=== PATIENT | female | born 1940 | race Caucasian/White ===

== ENCOUNTER → 2017-03-15 | Outpatient (CLI) | payer OTHER ==
[~2017-03-15] MED LIST: ASPI1TAB83 PO; CALC500C70 PO; CHOL1000 PO; CHOL4POW5 PO; FMR25 PO; MULTTAB58 PO; OMEG10002 PO; PRED1SUS3 OPB; SIMV40TA2 PO
[2017-03-15 13:34] VITALS: BP 119/78; PULSE 82; TEMP 36.7; O2SAT 94
--- NOTE | 2017-03-15 15:17 | Radiation Oncology Follow-Up ---
Radiation Oncology Follow-Up Date of Visit Mar 15, 2017. 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 Marcus is been followed with serial screening mammograms. 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 She had completed this and is now on no additional therapy. On 04/14/2014 a bilateral screening mammogram was performed. This showed 2 areas of concern in the right breast at the 9:00 central breast and 9 to 10 o'clock position lateral breast. A core needle biopsy was recommended. This procedure was performed on 04/22/2014. The right breast calcifications at the 9:00 central breast stereotactic biopsy revealed in site to ductal carcinoma, intermediate grade with necrosis and associated calcifications. The biopsy from the right breast calcifications at the 9 to 10:00 lateral breast stereotactic core biopsy revealed in situ ductal carcinoma intermediate grade with necrosis and associated calcifications. Accession #: [id number]. Estrogen receptors were strongly positive (100%) and progesterone receptors were moderately positive (50%). The patient was seen by Dr. Root to discuss treatment options. The patient opted to proceed with a partial mastectomy. The patient agreed and on 06/11/2014 she underwent a breast needle localization biopsy and sentinel lymph node biopsy. The breast tissue revealed a residual small focus of ductal carcinoma in situ, intermediate grade with necrosis and calcifications. There was foci of lobular neoplasia. All inked margins of resection were negative for ductal carcinoma in situ. The closest Alli was the anterior margin at 0.1 cm from the tumor. The estimated size was 0.9 cm with DCIS involving 3 of 11 blocks examined. The architectural pattern was comedo, cribriform with nuclear grade 2 and evidence of expansive comedo necrosis. 2 sentinel lymph nodes were identified and both were negative for metastatic carcinoma. The final stage was therefore pTis pN0(i-) ER positive WI positive. Accession #: [id number]. The patient developed some erythema surrounding the incision and was placed on a course of Keflex which she has recently completed. She states that the erythema has improved. She underwent a CT simulation and was found to be a candidate for accelerated partial breast treatment. Interim History She's been doing well over this past year. She denies any changes to her breast. She's noted no masses or tenderness no change of the axilla. She is up -to-date on mammography. She's noticed no swelling in her arm. She had previously seen Dr. Rome and was prescribed Femara. She was concerned about taking medication and stopped taking it on her own. She does not plan to restart. She also did not plan to follow up with medical oncology. She is scheduled for her next mammogram in May. Allergies Coded Allergies: Fabric Softeners (Unverified Allergy, Mild, RASH, 07/09/14) Home Medications Scheduled Aspirin (Aspirin), 81 MG PO DAILY Calcium/Vitamin D (Os-Alex 500 Plus D), 1 TAB PO BID Cholecalciferol (Vitamin D3), 1 TAB PO DAILY Cholestyramine Light (Prevalite), 4 GM PO DAILY Multiple Vitamin (Multivitamin), 1 TAB PO DAILY [place]-3 Fatty Acids (Fish Oil), 1,000 MG PO DAILY Prednisolone Acetate (Ophth) (Pred Forte 1% Oph), 1 DROP OPB DAILY Simvastatin (Zocor), 40 MG PO QPM Review of Systems Gastrointestinal: Symptoms: WNL Oral: Symptoms: No Problems Respiratory: Symptoms: WNL Urinary: Symptoms: WNL Skin: Symptoms: No Problems Other Skin Symptoms: had a skin cancer removed on Monday from arm Breast: Right Upper Arm Measurement: 33.5 Right Mid Arm Measurement: 26.0 Right Wrist Measurement: 17.0 Left Upper Arm Measurement: 33.0 Left Mid Arm Measurement: 24.8 Left Wrist Measurement: 17.0 Arm Dominence: Right Physical Exam Vital Signs Date Time Temp Pulse Resp B/P (MAP) Pulse Ox O2 Delivery O2 Flow Rate FiO2 03/15/17 13:34 36.7 82 20 119/78 94 Fatigue: None General Appearance: no apparent distress Eyes: normal inspection, EOMI ENT: normal ENT inspection, hearing grossly normal Neck: no adenopathy, thyroid normal Respiratory/Chest: lungs clear, no respiratory distress, no accessory muscle use Breast: Breast examination reveals well-healed incisions of the right breast. There are no masses or tenderness and no axillary adenopathy. She has fibrocystic changes in the area of the incision of the lateral breast. There are no distinct masses. There is no telangiectasia. She has no skin retractions or nipple changes. Using the Berlin score cosmesis she has a good outcome. The left pressure no masses or tenderness no axillary adenopathy. Cardiovascular: regular rate, rhythm, no gallop, no murmur Abdomen: non tender, soft, no organomegaly Extremities: no pedal edema Neurologic/Psychiatric: no motor/sensory deficits, alert, normal mood/affect Skin: warm/dry Pain Management Patient Reports Pain: No Pain Location: None Patient Preferred Pain Scale: 0 - 10 Initial Pain Intensity: 0.0 Pain Management Plan She has no pain therefore requires no pain management. Laboratory Laboratory Results: not applicable Pathology Pathology Results: not applicable Imaging Imaging Studies: were reviewed, and pertinent findings noted below Imaging Comments Date/Time of Imaging Study Study Completed: 11/21/2016 9:06 AM [facility] P[facility] Image Narrative Comparison is made to images from 05/16/2016 (bilateral) and images from 2015 (right) and images from 04/17/2015 (bilateral) and images from 10/27/2014 (right) and images from 2014 (right) and images from 04/14/2014 (bilateral) and images from 04/08/2013 (bilateral) and images from (bilateral) and images from 03/11/2011 (bilateral) and images from 03/10/2010 (bilateral). Right Breast Findings: The breast is heterogeneously dense (51% - 75% fibroglandular). This may lower the sensitivity of mammography. Post therapeutic changes are again noted. No new significant calcifications, masses or other abnormalities. Authenticated By Authenticating Date Authenticating Time Reading Providers(s) JETT SALCEDO MD 11-21-2016 09:23 JETT SALCEDO MD IMPRESSION: RIGHT BREAST: Benign, no evidence of malignancy. Normal interval follow-up is recommended in 6 months. Bilateral annual mammogram would be due at that time. The above findings and recommendations were discussed with and understood by the patient. Note: Approximately 10% of breast cancers are not detected on mammography. A negative mammographic report should not delay biopsy if a clinically suggestive mass is present. This mammogram has been analyzed with the computer aided detection system. Tomosynthesis was done. This notice contains the results of your recent mammogram, including information about breast density. If your mammogram shows that your breast tissue is dense, you should know that dense breast tissue is a common finding and is not abnormal. Statistics show many women could have dense or highly dense breasts. Dense breast tissue can make it harder to find cancer on a mammogram and may be associated with an increased risk of cancer. This information about the result of your mammogram is given to you to raise your awareness and to inform your conversations with your physician. Together, you can decide which screening options are right for you, based on your mammogram results, individual risk factors or physical examination. A report of your results was sent to your physician. Your mammographic breast density on today's study is described above. There are four categories of breast density on mammography. Fatty breasts and those with scattered fibroglandular tissue are not considered dense. Heterogeneously dense or extremely dense tissue is considered "dense". Please understand that assessment of breast density may vary from year to year. OVERALL ASSESSMENT - CATEGORY 2 - BENIGN END OF IMPRESSION Assessment & Plan Plan: Continue regular follow-up with her primary care provider. She'll be due for bilateral mammography in May. She has stopped the Femara on her own. She does not plan to resume the medication. She previously had concerns about changes that had occurred on her bone density study. We asked her to return to our office in 1 year. She may call if she has any questions or concerns in the interim. Total Time In Follow-Up I spent 20 minutes speaking to the patient and performing examination. I spent 15 minutes reviewing information and completeness note. Copy To Serafin Amaya D.O.
== END | disposition home or self-care (01) ==
LOC: C.ONC 13:22
PROVIDERS: ATTEND Physician Assistant Medical
DX: Z08 Encounter for follow-up examination after completed treatment for malignant neoplasm (principal); Z92.3 Personal history of irradiation; Z85.3 Personal history of malignant neoplasm of breast

== ENCOUNTER 2023-02-08 16:20 | Inpatient (IN) ==
--- NOTE | 2023-02-08 16:35 | Emergency Department Note ---
Impression & Plan Atrial fibrillation with RVR ED Provider Note CHIEF COMPLAINT: Atrial fibrillation, shortness of breath HISTORY OF PRESENT ILLNESS: This 83-year-old female patient past medical history of atrial fibrillation, congestive heart failure, dyslipidemia and breast cancer presents to the emergency department with complaints of persistent shortness of breath and palpitations. Patient states she believes she is in atrial fibrillation. She has been at home for the last couple of days hoping this would take care of itself. Patient has had no fevers COVID chills COVID chest pain. She denies any vomiting or fevers. She is anticoagulated with Eliquis and does take metoprolol daily. REVIEW OF SYSTEMS: A review of systems was performed with positives and pertinent negatives listed in the history of present illness. 10 systems were reviewed and are otherwise negative. ALLERGIES: see below MEDICATIONS: see below PMH: see below SOCIAL HISTORY: see below DDx: Atrial fibrillation, acute coronary syndrome, electrolyte abnormality, dehydration, infectious etiology, PE among others. PHYSICAL EXAM: Vital signs reviewed. General: Well-appearing ,83-year-old female in no significant distress. HEENT: No scleral icterus, PERRLA, neck supple. Moist mucous membranes Cardiovascular: Irregular and tachycardic, no extra sounds. Pulmonary: Clear to auscultation bilaterally, normal work of breathing. Abdomen: Soft, nontender, nondistended, positive bowel sounds. Musculoskeletal: Atraumatic, no peripheral edema. Neurologic: Patient awake alert and oriented x 3, speech is clear Skin: Warm, dry, no rash EXTERNAL medical records reviewed: Discharge summary 12/31/2022, previous EKG dated December 31, 2022 and prescription fill history EMERGENCY DEPARTMENT COURSE/MDM: This patient was evaluated and appeared to be in no significant distress. IV access was obtained and laboratory work was drawn. The patient was placed on the ekg monitor and noted to be in a rapid atrial fibrillation. Patient was medicated with 5 mg of IV metoprolol. She did not have any significant change in heart rate. Patient was then given 10 mg of IV Cardizem x2. Patient did require a Cardizem drip be initiated. Electrolytes seem to be within normal limits. Troponin is negative. Chest x-ray reveals mild pulmonary vascular congestion. The patient was informed of the findings and plan for admission. Hospitalist service was consulted for further management. MONITORING: An order for cardiac monitoring was placed and the patient is noted to be in a atrial fib at 132 beats per minute. RADIOLOGY: Chest x-ray to my interpretation reveals cardiomegaly with pulmonary vascular congestion, otherwise defer to radiology's over read. EKG: To my interpretation reveals atrial fibrillation with rapid ventricular response at 145 bpm. QTc at 484. No PVC, no PAC. poor R wave progression. When compared to previous dated December 31, 2022, atrial fibrillation has replaced sinus rhythm. DISPOSITION: Admission I have personally spent 40 minutes of critical care time in the direct management of this patient. This was a life/limb threatening event. This 40 minutes is in excess of all separately billable procedures. 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 Beliefs That Will Affect Care: None Current Living Situation: Spouse Current Living Situation Comment: Lives at home with Other Information That Helps Us Care for You: No Feels Safe at Home: Yes Safety Concerns: Feels Safe At This Time Assistive Devices: None Allergies Allergies Allergy/AdvReac Type Severity Reaction Status Date / Time Fabric Softeners Allergy Mild RASH Uncoded 02/08/23 18:23 Home Meds Home Medications Medication Instructions Recorded Confirmed calcium carbonate 500 mg calcium 500 mg PO BID 12/26/22 02/08/23 (1,250 mg) tablet multivitamin 1 tab PO DAILY 12/26/22 02/08/23 prednisolone acetate 1 % eye 1 drp OPB HS 12/26/22 02/08/23 drops,suspension (Pred Forte) metoprolol succinate 25 mg 37.5 mg PO QAM 02/08/23 02/08/23 tablet,extended release 24 hr rosuvastatin 10 mg tablet 10 mg PO HS 02/08/23 02/08/23 Previous Rx's Medication Instructions Recorded apixaban 5 mg tablet (Eliquis) 5 mg PO BID #60 tabs 12/27/22 Results & Data (ED) Vital Signs Vital Signs - 24 hr 02/08/23 16:24 Temperature 36.5 C Temperature Source Temporal Artery Scan Pulse Rate 136 H Respiratory Rate 19 Respiratory Effort / Characteristics Non-Labored Spontaneous Respiratory Depth Normal Blood Pressure 127/93 Blood Pressure Mean 104 Pulse Oximetry 91 Oxygen Delivery Method Room Air Sepsis Recent Fever Within 48 Hours No Sepsis New/Unexplained Change in Mental Status N/A Sepsis Action Taken by Nursing No Action Required Laboratory Data 02/09/23 05:22 02/12/23 05:09 Lab Results 02/08/23 Range/Units 18:16 WBC 8.55 (4.8-10.8) K/ul RBC 5.09 (4.20-5.40) M/uL Hgb 15.4 (12.0-16.0) g/dl Hct 47.2 H (37.0-47.0) % MCV 92.7 (80.0-100.0) fL MCH 30.3 (25.0-34.0) pg MCHC 32.6 (32.0-36.0) g/dL RDW Std Deviation 48.8 H (36.4-46.3) fL RDW Coeff of Rere 14.2 (11.5-14.5) % Plt Count 131 (130-400) K/uL MPV 13.0 H (9.4-12.4) fL Immature Gran % (Auto) 0.4 % Neut % (Auto) 68.8 % Lymph % (Auto) 18.8 % [place] % (Auto) 10.1 % Eos % (Auto) 1.3 % Baso % (Auto) 0.6 % Neut # (Auto) 5.89 (1.40-6.50) K/uL Lymph # (Auto) 1.61 (1.20-3.40) K/uL [place] # (Auto) 0.86 H (0.11-0.59) K/uL Eos # (Auto) 0.11 (0.00-0.50) K/uL Baso # (Auto) 0.05 (0.00-0.20) K/uL Immature Gran # (Auto) 0.03 (0.01-0.20) K/uL Sodium 140 (136-145) mmol/L Potassium 4.5 (3.5-5.1) mmol/L Chloride 107 (98-107) mmol/L Carbon Dioxide 27 (21-32) mmol/L Anion Gap 6 (3-11) BUN 16 (6-23) mg/dl Creatinine 1.12 (0.6-1.2) mg/dl Est Cr Clr Drug Dosing 38.5 ml/min Est GFR ( Amer) 52.2 ml/min Est GFR (Non-Af Amer) 45.1 ml/min BUN/Creatinine Ratio 14.3 (10-20) Glucose 99 (70-99(Fasting)) mg/dl Calcium 9.0 (8.6-10.3) mg/dl Magnesium 2.1 (1.7-2.4) mg/dl Total Bilirubin 1.4 H (0.2-1.0) mg/dl AST 35 (13-39) U/L ALT 52 (7-52) U/L Alkaline Phosphatase 49 (34-104) U/L Troponin I High Sens 17.5 H (0-14) pg/ml Total Protein 6.3 (6.0-8.3) gm/dl Albumin 3.9 (3.4-5.0) gm/dl Globulin 2.4 L (2.5-4.0) gm/dl Albumin/Globulin Ratio 1.6 (0.9-2) Administered Medications Amiodarone HCl (Amiodarone 200 Mg Tab) 400 mg PO BIDM [facility] Stop: 03/14/23 16:59 Last Admin: 02/12/23 16:04 Dose: 400 mg Documented By: KATIE Apixaban (Apixaban 5 Mg Tablet) 5 mg PO BID [facility] Stop: 03/10/23 20:59 Last Admin: 02/12/23 20:13 Dose: 5 mg Documented By: Admin: 02/12/23 08:09 Dose: 5 mg Documented By: Admin: 02/11/23 20:16 Dose: 5 mg Documented By: Admin: 02/11/23 09:02 Dose: 5 mg Documented By: Admin: 02/10/23 21:21 Dose: 5 mg Documented By: Admin: 02/10/23 09:05 Dose: 5 mg Documented By: Admin: 02/09/23 20:00 Dose: 5 mg Documented By: Admin: 02/09/23 08:17 Dose: 5 mg Documented By: Admin: 02/08/23 22:18 Dose: 5 mg Documented By: SHEBA Calcium Carbonate (Calcium Carbonate 1250mg Tab) 1,250 mg PO BID [facility] Stop: 03/10/23 20:59 Last Admin: 02/12/23 20:13 Dose: 1,250 mg Documented By: Admin: 02/12/23 08:09 Dose: 1,250 mg Documented By: Admin: 02/11/23 20:17 Dose: 1,250 mg Documented By: Admin: 02/11/23 09:01 Dose: 1,250 mg Documented By: Admin: 02/10/23 21:21 Dose: 1,250 mg Documented By: Admin: 02/10/23 09:05 Dose: 1,250 mg Documented By: Admin: 02/09/23 20:00 Dose: 1,250 mg Documented By: Admin: 02/09/23 08:17 Dose: 1,250 mg Documented By: Admin: 02/08/23 22:17 Dose: 1,250 mg Documented By: SHEBA Metoprolol Tartrate (Metoprolol Tartrate 25 Mg Tab) 25 mg PO BID ABRA[facility]AM Stop: 03/10/23 20:59 Last Admin: 02/12/23 08:09 Dose: 25 mg Documented By: Admin: 02/11/23 20:16 Dose: 25 mg Documented By: Admin: 02/11/23 09:01 Dose: 25 mg Documented By: Admin: 02/10/23 21:20 Dose: 25 mg Documented By: Admin: 02/10/23 09:05 Dose: 25 mg Documented By: Admin: 02/09/23 20:00 Dose: 25 mg Documented By: Admin: 02/09/23 08:17 Dose: 25 mg Documented By: Admin: 02/08/23 22:18 Dose: 25 mg Documented By: SHEBA Multivitamins (Multivitamin Tab) 1 tab PO DAILY AB[facility] Stop: 03/11/23 08:59 Last Admin: 02/12/23 08:09 Dose: 1 tab Documented By: Admin: 02/11/23 09:01 Dose: 1 tab Documented By: Admin: 02/10/23 09:05 Dose: 1 tab Documented By: Admin: 02/09/23 08:18 Dose: 1 tab Documented By: MAHOGANY Prednisolone Acetate (Prednisolone Acetate 1% Op Susp 5 Ml Btl) 1 drops OP HS ABRAHAM Stop: 03/11/23 20:59 Last Admin: 02/12/23 20:13 Dose: 1 drops Documented By: Admin: 02/11/23 20:18 Dose: 1 drops Documented By: Admin: 02/10/23 21:19 Dose: 1 drops Documented By: Admin: 02/09/23 20:01 Dose: 1 drops Documented By: SHEBA Rosuvastatin Calcium (Rosuvastatin Calcium 10 Mg Tab) 10 mg PO HS ABRAHAM Stop: 03/10/23 20:59 Last Admin: 02/12/23 20:13 Dose: 10 mg Documented By: Admin: 02/11/23 20:16 Dose: 10 mg Documented By: Admin: 02/10/23 21:20 Dose: 10 mg Documented By: Admin: 02/09/23 20:00 Dose: 10 mg Documented By: Admin: 02/08/23 22:18 Dose: 10 mg Documented By: DM Discontinued Medications Amiodarone HCl (Amiodarone 200 Mg Tab) 400 mg PO TIDM ABRAHAM Stop: 03/12/23 11:59 Last Admin: 02/12/23 08:09 Dose: 400 mg Documented By: Admin: 02/11/23 17:30 Dose: 400 mg Documented By: Admin: 02/11/23 12:22 Dose: 400 mg Documented By: Admin: 02/11/23 09:01 Dose: 400 mg Documented By: Admin: 02/10/23 16:16 Dose: 400 mg Documented By: Admin: 02/10/23 11:26 Dose: 400 mg Documented By: YESICA Diltiazem HCl (Diltiazem Hcl 5 Mg/Ml 5 Ml Vial) 10 mg IV NOW STA Stop: 02/08/23 17:14 Last Admin: 02/08/23 17:36 Dose: 10 mg Documented By: JOSH Co-signed By: PEARL Diltiazem HCl (Diltiazem Hcl 5 Mg/Ml 5 Ml Vial) 10 mg IV NOW STA Stop: 02/08/23 18:09 Last Admin: 02/08/23 18:27 Dose: 10 mg Documented By: PEARL Co-signed By: HÉCTOR Diltiazem HCl (Diltiazem Hcl 5 Mg/Ml 5 Ml Vial) 10 mg IV NOW STA Stop: 02/08/23 19:34 Last Admin: 02/08/23 19:51 Dose: 10 mg Documented By: DoreenGV Co-signed By: REBECCA Furosemide (Furosemide 40 Mg/4 Ml Vial) 40 mg IV ONE ONE Stop: 02/09/23 11:27 Last Admin: 02/09/23 12:19 Dose: 40 mg Documented By: MAHOGANY Furosemide (Furosemide 40 Mg/4 Ml Vial) 40 mg IV ONE ONE Stop: 02/10/23 15:52 Last Admin: 02/10/23 16:14 Dose: 40 mg Documented By: YESICA Furosemide (Furosemide Inj 20 Mg/2 Ml Vial) 20 mg IV ONE ONE Stop: 02/12/23 10:48 Last Admin: 02/12/23 11:16 Dose: 20 mg Documented By: KATIE Diltiazem HCl 125 mg/ Dextrose 125 mls @ 0 mls/hr IV .Q0M ABRAHAM; Protocol Stop: 03/10/23 19:44 Last Titration: 02/09/23 09:57 Dose: Infused Documented By: MAHOGANY Co-signed By: VIRA Titration: 02/09/23 01:01 Dose: 0 mg/hr, 0 mls/hr Documented By: SHEBA Co-signed By: ARR(2) Titration: 02/08/23 20:50 Dose: 10 mg/hr, 10 mls/hr Documented By: SHEBA Co-signed By: ARR(2) Admin: 02/08/23 19:50 Dose: 5 mg/hr, 5 mls/hr Documented By: QGV Co-signed By: REBECCA Digoxin 250 mcg/ Syringe 10 mls @ 2 mls/min IV NOW STA Stop: 02/09/23 01:06 Last Admin: 02/09/23 01:14 Dose: 2 mls/min Documented By: SHEBA Albumin Human (Albumin 25%) 25 gm in 100 mls @ 50 mls/hr IV ONE ONE Stop: 02/09/23 03:14 Last Infusion: 02/09/23 04:28 Dose: Infused Documented By: CHAYO(2) Admin: 02/09/23 01:21 Dose: 50 mls/hr Documented By: SHEBA Amiodarone HCl/Dextrose (Nexterone / D5w) 360 mg in 200 mls @ 16.667 mls/hr IV .Q12H ABRAHAM Stop: 03/11/23 15:59 Last Infusion: 02/10/23 11:27 Dose: Infused Documented By: YESICA Co-signed By: AMY Infusion: 02/10/23 07:07 Dose: 0.5 mg/min, 16.7 mls/hr Documented By: YESICA Co-signed By: SHEBA Admin: 02/10/23 03:26 Dose: 0.5 mg/min, 16.7 mls/hr Documented By: SHEBA Co-signed By: CHAYO(2) Infusion: 02/10/23 03:26 Dose: Infused Documented By: SHEBA Co-signed By: CHAYO(2) Admin: 02/09/23 16:47 Dose: 0.5 mg/min, 16.7 mls/hr Documented By: MAHOGANY Co-signed By: VIRA Amiodarone HCl/Dextrose (Nexterone / D5w) 360 mg in 200 mls @ 33.333 mls/hr IV ONE ONE Stop: 02/09/23 16:07 Last Infusion: 02/09/23 16:36 Dose: Infused Documented By: MAHOGANY Co-signed By: VIRA Admin: 02/09/23 10:35 Dose: 1 mg/min, 33.3 mls/hr Documented By: MAHOGANY Co-signed By: VIRA Amiodarone HCl/Dextrose (Nexterone / D5w) 150 mg in 100 mls @ 600 mls/hr IV NOW STA Stop: 02/09/23 10:07 Last Infusion: 02/09/23 10:35 Dose: Infused Documented By: MAHOGANY Co-signed By: VIRA Admin: 02/09/23 10:24 Dose: 600 mls/hr Documented By: MAHOGANY Co-signed By: VIRA Metoprolol Tartrate (Metoprolol Tartrate 1 Mg/Ml Vial) 5 mg IV NOW STA Stop: 02/08/23 16:41 Last Admin: 02/08/23 17:04 Dose: 5 mg Documented By: JOSH Metoprolol Tartrate (Metoprolol Tartrate 1 Mg/Ml Vial) 2.5 mg IV NOW STA Stop: 02/09/23 04:39 Last Admin: 02/09/23 04:49 Dose: 2.5 mg Documented By: SHEBA Miscellaneous (Stat Iv Infusion Titration Per Protocol) 1 each N/A NOW STA Stop: 02/08/23 19:34 Last Admin: 02/08/23 21:05 Dose: 1 each Documented By: SHEBA Potassium Chloride (Potassium Chloride 10 Meq Tabcr) 10 meq PO NOW STA Stop: 02/09/23 08:22 Last Admin: 02/09/23 08:27 Dose: 10 meq Documented By: MAHOGANY Potassium Chloride (Potassium Chloride Crtab 20 Meq Tabcr) 20 meq PO NOW STA Stop: 02/10/23 15:52 Last Admin: 02/10/23 16:14 Dose: 20 meq Documented By: YESICA Potassium Chloride (Potassium Chloride Crtab 20 Meq Tabcr) 40 meq PO NOW ONE Stop: 02/11/23 16:07 Last Admin: 02/11/23 17:31 Dose: 40 meq Documented By: MINO Prednisolone Acetate (Prednisolone Acetate 1% Op Susp 5 Ml Btl) 1 drops OP DAILY [facility] Stop: 03/11/23 08:59 Last Admin: 02/08/23 22:18 Dose: 1 drops Documented By: SHEBA Discharge Plan Visit Data Chief Complaint: Shortness of Breath/Dyspnea Stated Complaint: SOB, A-FIB ED Provider: Sakshi Wright Discharge Problem: Atrial fibrillation with RVR Patient Disposition: Admitted As Inpatient Discharge Instructions Interventions: ED Discharge Assessment Last Done: 02/08/23 20:28
[2023-02-08] MEDS ORDERED: METOPROLOL TARTRATE 1 MG/ML VIAL IV STA (16:40)
[2023-02-08] MEDS ORDERED: dilTIAZem HCl 5 MG/ML 5 ML VIAL IV STA ×3 (17:13→19:33)
[2023-02-08 18:37] LABS: Basophils # (auto) 0.05 K/uL (0.00-0.20); Basophils % (auto) 0.6 %; Eosinophils # (auto) 0.11 K/uL (0.00-0.50); Eosinophils % (auto) 1.3 %; Hematocrit (blood only) 47.2 % (37.0-47.0); Hemoglobin 15.4 g/dl (12.0-16.0); Immature Granulocytes # (auto) 0.03 K/uL (0.01-0.20); Immature Granulocytes % (auto) 0.4 %; Lymphocytes # (auto) 1.61 K/uL (1.20-3.40); Lymphocytes % (auto) 18.8 %; Mean Corpuscular Hemoglobin 30.3 pg (25.0-34.0); Mean Corpuscular Hgb Conc 32.6 g/dL (32.0-36.0); Mean Corpuscular Volume 92.7 fL (80.0-100.0); Monocytes # (auto) 0.86 K/uL (0.11-0.59); Monocytes % (auto) 10.1 %; Neutrophils # (auto) 5.89 K/uL (1.40-6.50); Neutrophils % (auto) 68.8 %; Platelet Count 131 K/uL (130-400); RDW Coefficient of Variation 14.2 % (11.5-14.5); RDW Standard Deviation 48.8 fL (36.4-46.3); Red Blood Count 5.09 M/uL (4.20-5.40); White Blood Count 8.55 K/ul (4.8-10.8)
[2023-02-08 18:54] LABS: Albumin Globulin Ratio 1.6 (0.9-2); Albumin Level 3.9 gm/dl (3.4-5.0); BUN Creatinine Ratio 14.3 (10-20); Bilirubin,Total 1.4 mg/dl (0.2-1.0); Creatinine Clr Calc Pharmacy 38.5 ml/min; Est GFR (African American) 52.2 ml/min; Est GFR (Non-African American) 45.1 ml/min; Globulin 2.4 gm/dl (2.5-4.0); Magnesium 2.1 mg/dl (1.7-2.4); Potassium 4.5 mmol/L (3.5-5.1); Total Protein 6.3 gm/dl (6.0-8.3)
[2023-02-08 18:59] LABS: Troponin I High Sensitivity 17.5 pg/ml (0-14)
[2023-02-08] MEDS ORDERED: STAT IV Infusion **Titration per Protocol STA (19:33)
--- NOTE | 2023-02-08 19:37 | History & Physical Report ---
Date of Service February 08, 2023 Assessment & Plan (1) Atrial fibrillation with RVR: (2) HFrEF (heart failure with reduced ejection fraction): (3) Dyslipidemia: Plan: This is an 83-year-old female who has a significant past medical history of paroxysmal atrial fibrillation anticoagulated on Eliquis, chronic HFfEF, hx of corneal transplant 10 yrs ago,hyperlipidemia, fecal incontinence and history of breast cancer who presents to ED secondary to MOSQUEDA x 2-3 days. Patient hospitalized 12/26 to 12/31 secondary to A-fib with RVR. Echocardiogram at that time revealed reduced EF with 40 to 45%, moderate global hypokinesis of left ventricle, right ventricle moderately dilated, left atrium moderately dilated, right atrium moderately dilated, aortic valve sclerosis, moderate to severe MR and moderate to severe TR. patient initially treated aggressively with medical management including high-dose metoprolol and digoxin without rate control. She underwent CARISSA guided cardioversion with success. At that time she was found to be in sinus bradycardia likely secondary to aggressive metoprolol use. At this time her metoprolol succinate was reduced back to 12.5 twice daily. On admission she is currently taking 37.5 mg daily. There was discussion at that time about possible tachybradycardia syndrome. Atrial fibrillation with RVR Acute HFrEF -possible tachycardia mediated during most recent hospitalization Admit to PCU Patient currently on IV diltiazem drip will convert to metoprolol tartrate 25 twice daily TSH normal during december hospitalization consult cardiology N.p.o. after midnight in event patient requires additional cardioversion continue eliquis she is euvolemic but will need close monitoring of volume status HLD continue statin chronic stable Hx of corneal transplant continue pred forte chronic, stable DVT ppx: Eliquis PCP: Monique FULL CODE Dispo: PCU Pt was seen and examined in collaboration with Dr. Haddad, please see addendum History of Present Illness Chief Complaint: Referred by PCP 2/2 afib rvr; SOB x 2-3days Primary Care Provider: Serafin Amaya DO This is an 83-year-old female who has a significant past medical history of paroxysmal atrial fibrillation anticoagulated on Eliquis, chronic HFpEF, hx of corneal transplant 10 yrs ago, mild mitral regurgitation, mild tricuspid regurgitation, hyperlipidemia, fecal incontinence and history of breast cancer who presents to ED secondary to MOSQUEDA x 2-3 days. Patient was seen in clinic today by her PCP due to complaints of MOSQUEDA and was noted to be in afib with RVR and therefore was sent to ED. She states over the last 2-3 days she has become very SOB even with little activity. Yesterday she was in the grocery store and had a hard time going around the store. She denies any recent illness, f/c/s, uri sx, chest pain, orthopnea, PND, edema, weight change, n/v/d, abd pain. Her stomach has felt, "queasy," today and overall reduced appetite. She was hospitalized in December with new onset atrial fib and erve2pudx score of 3. She was placed on oral metoprolol and eliquis. There was concern for possible TBS. She required diltiazem gtt, digoxin and underwent CARISSA guided cardioversion on 12/30. Allergies Allergy/AdvReac Type Severity Reaction Status Date / Time Fabric Softeners Allergy Mild RASH Uncoded 02/08/23 18:23 Home Medications Medication Instructions Recorded Confirmed Type calcium carbonate 500 mg calcium 500 mg PO BID 12/26/22 02/08/23 History (1,250 mg) tablet multivitamin 1 tab PO DAILY 12/26/22 02/08/23 History prednisolone acetate 1 % eye 1 drp OPB HS 12/26/22 02/08/23 History drops,suspension (Pred Forte) apixaban 5 mg tablet (Eliquis) 5 mg PO BID #60 tabs 12/27/22 02/08/23 Rx metoprolol succinate 25 mg 37.5 mg PO QAM 02/08/23 02/08/23 History tablet,extended release 24 hr rosuvastatin 10 mg tablet 10 mg PO HS 02/08/23 02/08/23 History Past Med/Surg History Medical History Dyslipidemia Fecal incontinence Surgical History H/O mastectomy History of adenoidectomy Hx of cataract removal with insertion of prosthetic lens Family History Other COPD (chronic obstructive pulmonary disease) Lung cancer Social History Smoking Status: Never smoker Hx Alcohol Use: Yes Alcohol type: beer and wine Alcohol type Comment: 2 drinks daily Hx Substance Use: No Preferred Language: Mohawk Communication Ability: Effective Shell Sorter Required: No Beliefs That Will Affect Care: None Current Living Situation: Spouse Current Living Situation Comment: Lives at home with Other Information That Helps Us Care for You: No Feels Safe at Home: Yes Safety Concerns: Feels Safe At This Time Assistive Devices: None Review of Systems Review of Systems: All systems reviewed & are unremarkable except as noted in HPI & below Physical Exam Physical Exam: Constitutional: WD/WN, vitals as above, NAD, sitting up in bed, pleasant, conversing easily Head: Normocephalic, Atraumatic Eyes: PERRL, conjunctivae normal, anicteric sclerae ENMT: external ear and nose normal, oropharynx normal Neck: trachea midline, no thyromegaly normal visual inspection Respiratory: normal respiratory effort, lungs clear to auscultation, no wheeze, rales, rhonchi. Normal insp/exp effort, no accessory muscle use Cardiovascular: IRR/IRR, no murmur, trace lower ext edema Vessels: no JVD or carotid bruit Chest: normal inspection of chest Abdomen: normal bowel sounds, soft, nontender, no hepatosplenomegaly Musculoskeletal: no cyanosis or clubbing, extremities motor strength 5/5 Skin: no rashes, warm and dry normal turgor Neurologic: PERRL, EOMI, accommodation nl, no face palsy, no dysarthria CN's II-XI intact bilaterally and moves all extremities Psychiatric: A+Ox3, euthymic affect Lymphatic: no cervical or axillary lymphadenopathy : deferred Results & Data Results & Data Vital Signs (Past 12 Hours) Vital Signs Temp Pulse Pulse Resp BP BP Pulse Ox 02/08/23 18:29 118 H 20 124/101 H 97 02/08/23 17:49 132 H 121/98 02/08/23 17:04 142 H 131/102 H 02/08/23 16:57 02/08/23 16:57 02/08/23 16:49 130 H 02/08/23 16:41 140 H 16 134/105 H 98 02/08/23 16:24 36.5 C 136 H 19 127/93 91 O2 Del Method 02/08/23 18:29 Room Air 02/08/23 17:49 02/08/23 17:04 02/08/23 16:57 Room Air 02/08/23 16:57 Room Air 02/08/23 16:49 02/08/23 16:41 Room Air 02/08/23 16:24 Room Air Medications Administered Medication List Discontinued Medications Diltiazem HCl (Diltiazem Hcl 5 Mg/Ml 5 Ml Vial) 10 mg IV NOW STA Stop: 02/08/23 17:14 Last Admin: 02/08/23 17:36 Dose: 10 mg Documented By: JOSH Co-signed By: PEARL Diltiazem HCl (Diltiazem Hcl 5 Mg/Ml 5 Ml Vial) 10 mg IV NOW STA Stop: 02/08/23 18:09 Last Admin: 02/08/23 18:27 Dose: 10 mg Documented By: PEARL Co-signed By: HÉCTOR Metoprolol Tartrate (Metoprolol Tartrate 1 Mg/Ml Vial) 5 mg IV NOW STA Stop: 02/08/23 16:41 Last Admin: 02/08/23 17:04 Dose: 5 mg Documented By: JOSH COVID-19 Results Results COVID-19 Adm Lab Results: RBC 4.45 M/uL (4.20-5.40) 02/09/23 WBC 7.06 K/ul (4.8-10.8) 02/09/23 Hgb 13.7 g/dl (12.0-16.0) 02/09/23 Hct 41.4 % (37.0-47.0) 02/09/23 Plt Count 104 K/uL (130-400) L 02/09/23 Neutrophils (%) (Auto) 64.8 % 02/09/23 Lymphocytes (%) (Auto) 19.5 % 02/09/23 Monocytes # (Auto) 0.80 K/uL (0.11-0.59) H 02/09/23 Eosinophils # (Auto) 0.24 K/uL (0.00-0.50) 02/09/23 Immature Granulocyte % (Auto) 0.6 % 02/09/23 Neutrophils # (Auto) 4.57 K/uL (1.40-6.50) 02/09/23 Lymphocytes # (Auto) 1.38 K/uL (1.20-3.40) 02/09/23 Monocytes # (Auto) 0.80 K/uL (0.11-0.59) H 02/09/23 Eosinophils # (Auto) 0.24 K/uL (0.00-0.50) 02/09/23 Basophils # (Auto) 0.03 K/uL (0.00-0.20) 02/09/23 Immature Granulocyte # (Auto) 0.04 K/uL (0.01-0.20) 3 Na 141 mmol/L (136-145) 02/09/23 K 3.8 mmol/L (3.5-5.1) 02/09/23 Cl 108 mmol/L (98-107) H 02/09/23 CO2 27 mmol/L (21-32) 02/09/23 Anion Gap 6 (3-11) 02/09/23 BUN 14 mg/dl (6-23) 02/09/23 Creatinine 0.96 mg/dl (0.6-1.2) 02/09/23 BUN/Creatinine Ratio 14.6 (10-20) 02/09/23 Glucose Level 87 mg/dl (70-99(Fasting)) 02/09/23 Ca 9.1 mg/dl (8.6-10.3) 02/09/23 Total Bilirubin 1.3 mg/dl (0.2-1.0) H 02/09/23 AST/SGOT 25 U/L (13-39) 02/09/23 ALT/SGPT 40 U/L (7-52) 02/09/23 Alkaline Phosphatase 42 U/L (34-104) 02/09/23 Total Protein 5.6 gm/dl (6.0-8.3) L 02/09/23 Albumin 3.8 gm/dl (3.4-5.0) 02/09/23 Globulin 1.8 gm/dl (2.5-4.0) L 02/09/23 Albumin/Globulin Ratio 2.1 (0.9-2) H 02/09/23 Chest X-Ray 02/08/23 Code Status & VTE Plan Code Status FULL CODE Supervising Physician Co-Signing Physician Notes 83-year-old lady with came in with complaint of feeling tired and shortness of breath with minimal activity lately who was seen at PCP office and directed to the ED. Patient was found to be in A-fib with RVR in the ED. Received diltiazem bolus doses with no improvement, started on diltiazem drip. Patient maintains compliance with Eliquis per her. Denies any headache or dizziness or chest pain. Reports nausea and poor appetite. Denies any acute issues with her bowel or bladder. Denies smoking tobacco, reports occasional alcohol use. Continue with Eliquis, continue with Cardizem drip. Telemetry monitoring. Cardiology consult. On exam: GENERAL: Alert and oriented x3. NAD, on RA. HEENT: No pallor, no icterus. Pupils equal, round and reactive to light. Oral mucosa moist. NECK: No JVD, no neck masses. HEART: S1 and S2 heard. irregular rate and rhythm. tachycardia. No murmur, no gallop. RESPIRATORY SYSTEM: Normal AP diameter. No accessory muscle use. No wheezing, no crackles. ABDOMEN: Soft, bowel sounds present, nontender, no distention. CENTRAL NERVOUS SYSTEM: No facial droop. Speech is clear. Obeys simple commands. Moves extremities. EXTREMITIES: 1+ ble edema, no erythema seen. I have seen and examined the patient and have discussed the case with the provider above. I agree with the assessment and plan as stated.
[2023-02-08] MEDS ORDERED: dilTIAZem HCL 125 MG in DEXTROSE 5% 100 ML IV SCH (19:45)
[2023-02-08] MEDS ORDERED: ONDANSETRON INJ 2 MG/ML 2 ML VIAL IV PRN (20:57)
[2023-02-08] MEDS ORDERED: ALUMINUM/MAGNESIUM SUSP 30 ML UDC PO PRN (20:57)
[2023-02-08] MEDS ORDERED: MAGNESIUM HYDROXIDE SUSP 30 ML UDC PO PRN (20:57)
[2023-02-08] MEDS ORDERED: ACETAMINOPHEN 325 MG TAB PO PRN (20:57)
[2023-02-08] MEDS ORDERED: POLYETHYLENE (MIRALAX) 17 GM PACK PO PRN (20:57)
[2023-02-08 21:52] LABS: Appearance Urine Cloudy (Clear); Bacteria Urine Automated Negative (Negative); Bilirubin Urine Negative (Negative); Blood Urine 2+ (Negative); Color Urine Yellow; Epithelial Cell Urine Auto >30 /lpf (0-5); Glucose Urine UA Negative (Negative); Ketones Urine Trace (Negative); Leukocyte Esterase Urine 2+ (Negative); Nitrite Urine Negative (Negative); Protein Urine 1+ (Negative); RBC Urine Automated 0-4 /hpf (0-4); Specific Gravity Urine 1.018 (1.000-1.030); Urobilinogen Urine Negative (Negative); pH Urine 5.5 (4.5-7.5)
[2023-02-08] MEDS: CALCIUM CARBONATE 1250MG TAB PO SCH (22:17)
[2023-02-08] MEDS: APIXABAN 5 MG TABLET PO SCH (22:18)
[2023-02-08] MEDS: ROSUVASTATIN CALCIUM 10 MG TAB PO SCH (22:18)
[2023-02-08] MEDS: METOPROLOL TARTRATE 25 MG TAB PO SCH (22:18)
[2023-02-09] MEDS ORDERED: DIGOXIN 250 MCG in SYRINGE 9 ML IV STA (01:02)
[2023-02-09] MEDS ORDERED: ALBUMIN 25% 25 GM/100 ML VIAL IV ONE (01:15)
[2023-02-09] MEDS ORDERED: Nursing to Pharmacy Communication SCH (01:45)
[2023-02-09] MEDS ORDERED: METOPROLOL TARTRATE 1 MG/ML VIAL IV STA (04:38)
[2023-02-09 06:18] LABS: Basophils # (auto) 0.03 K/uL (0.00-0.20); Basophils % (auto) 0.4 %; Eosinophils # (auto) 0.24 K/uL (0.00-0.50); Eosinophils % (auto) 3.4 %; Hematocrit (blood only) 41.4 % (37.0-47.0); Hemoglobin 13.7 g/dl (12.0-16.0); Immature Granulocytes # (auto) 0.04 K/uL (0.01-0.20); Immature Granulocytes % (auto) 0.6 %; Lymphocytes # (auto) 1.38 K/uL (1.20-3.40); Lymphocytes % (auto) 19.5 %; Mean Corpuscular Hemoglobin 30.8 pg (25.0-34.0); Mean Corpuscular Hgb Conc 33.1 g/dL (32.0-36.0); Mean Platelet Volume 13.5 fL (9.4-12.4); Monocytes % (auto) 11.3 %; Neutrophils # (auto) 4.57 K/uL (1.40-6.50); Neutrophils % (auto) 64.8 %; Platelet Count 104 K/uL (130-400); RDW Coefficient of Variation 14.2 % (11.5-14.5); RDW Standard Deviation 48.2 fL (36.4-46.3); Red Blood Count 4.45 M/uL (4.20-5.40); White Blood Count 7.06 K/ul (4.8-10.8)
[2023-02-09 06:44] LABS: Albumin Globulin Ratio 2.1 (0.9-2); Albumin Level 3.8 gm/dl (3.4-5.0); BUN Creatinine Ratio 14.6 (10-20); Bilirubin,Total 1.3 mg/dl (0.2-1.0); Calcium 9.1 mg/dl (8.6-10.3); Creatinine Clr Calc Pharmacy 43.8 ml/min; Est GFR (African American) 62.9 ml/min; Est GFR (Non-African American) 54.3 ml/min; Globulin 1.8 gm/dl (2.5-4.0); Magnesium 1.9 mg/dl (1.7-2.4); Potassium 3.8 mmol/L (3.5-5.1); Total Protein 5.6 gm/dl (6.0-8.3)
[2023-02-09 06:58] LABS: Thyroid Stimulating Hormone 1.792 uIu/ml (0.300-4.500)
--- NOTE | 2023-02-09 07:32 | XRay Report ---
XR chest 1V portable HISTORY: Dyspnea COMPARISON: Chest 12/26/2022. FINDINGS: The heart is enlarged. There is diffuse interstitial/vascular thickening suggestive mild in terstitial pulmonary edema. Suspect trace bilateral pleural effusions. Hazy appearance to the right m edial lung base may be due to the pulmonary edema or a developing opacity. IMPRESSION: 1. Cardiomegaly with mild interstitial pulmonary edema and trace bilateral pleural effusions. 2. Hazy appearance the right medial lung base could be due to the pulmonary edema or a developing air space opacity. ACT 112: Negative or not required by law. Electronically signed by: Ish Quezada M.D. 02/09/2023 7:30 AM
[2023-02-09] MEDS: METOPROLOL TARTRATE 25 MG TAB PO SCH ×2 (08:17→20:00)
[2023-02-09] MEDS: CALCIUM CARBONATE 1250MG TAB PO SCH ×2 (08:17→20:00)
[2023-02-09] MEDS: APIXABAN 5 MG TABLET PO SCH ×2 (08:17→20:00)
[2023-02-09] MEDS: MULTIVITAMIN TAB PO SCH (08:18)
[2023-02-09] MEDS ORDERED: POTASSIUM CHLORIDE 10 MEQ TABCR PO STA (08:21)
[2023-02-09] MEDS ORDERED: prednisoLONE acetate 1% OP SUSP 5 ML BTL OP SCH (09:00)
--- NOTE | 2023-02-09 09:22 | Cardiology Consultation ---
Date of Consultation February 09, 2023 Assessment & Plan (1) Atrial fibrillation with RVR: (2) HFrEF (heart failure with reduced ejection fraction): Plan 83-year-old female presents with recurrent atrial fibrillation and rapid ventricular response with acute on chronic heart failure. Mild LV systolic dysfunction per most recent echocardiogram. Recommend discontinue of IV diltiazem. Attempt to restore sinus rhythm with IV amiodarone. Bolus and infusion ordered. She has been compliant with anticoagulation. Recent transesophageal echocardiogram without evidence of left atrial appendage thrombus. Initiate IV diuresis with Lasix 40 mg x 1 now, then daily. Follow daily weight, fluid balance, GFR, and electrolytes. Supplement potassium as indicated. History of Present Illness Reason for Consultation: Atrial fibrillation with rapid ventricular response. Requesting Physician: Joseline Fletcher PA-C Attending Physician: Ramses Vigil MD History of Present Illness 83-year-old female present to the emergency department with 2 to 3 days of dyspnea on exertion. Evaluated by primary care 02/08/2023 and referred to the ER due to atrial fibrillation with rapid ventricular response. Recently hospitalized 12/27/2022 due to new onset atrial fibrillation. Ultimately underwent transesophageal echo guided cardioversion on 12/30/2022. Mild left ventricular systolic dysfunction noted during hospitalization. She was seen by Dr. Rush in follow-up 01/12/2023. Metoprolol titrated to 37.5 mg twice daily. Diltiazem infusion discontinued overnight due to intermittent hypotension. Patient currently comfortable at rest. Denies chest discomfort or heaviness. No palpitations, lightheadedness, or dizziness. Compliant with oral anticoagulation prior to admission. Oral diuretic therapy discontinued by primary care after recent hospitalization in December. Offers no other concerns/complaints. Allergies Allergy/AdvReac Type Severity Reaction Status Date / Time Fabric Softeners Allergy Mild RASH Uncoded 02/08/23 18:23 Home Medications Medication Instructions Recorded Confirmed Type calcium carbonate 500 mg calcium 500 mg PO BID 12/26/22 02/08/23 History (1,250 mg) tablet multivitamin 1 tab PO DAILY 12/26/22 02/08/23 History prednisolone acetate 1 % eye 1 drp OPB HS 12/26/22 02/08/23 History drops,suspension (Pred Forte) apixaban 5 mg tablet (Eliquis) 5 mg PO BID #60 tabs 12/27/22 02/08/23 Rx metoprolol succinate 25 mg 37.5 mg PO QAM 02/08/23 02/08/23 History tablet,extended release 24 hr rosuvastatin 10 mg tablet 10 mg PO HS 02/08/23 02/08/23 History Patient History Medical History Fecal incontinence Dyslipidemia Surgical History Hx of cataract removal with insertion of prosthetic lens History of adenoidectomy H/O mastectomy Family History Other COPD (chronic obstructive pulmonary disease) Lung cancer Social History Smoking Status: Never smoker Hx Alcohol Use: Yes Alcohol type: beer and wine Alcohol type Comment: 2 drinks daily Hx Substance Use: No Preferred Language: Ivorian Communication Ability: Effective Endocrinology Specialist Required: No Beliefs That Will Affect Care: None Current Living Situation: Spouse Current Living Situation Comment: Lives at home with Other Information That Helps Us Care for You: No Feels Safe at Home: Yes Safety Concerns: Feels Safe At This Time Assistive Devices: None Review of Systems Review of Systems: All systems reviewed & are unremarkable except as noted in Subjective Physical Exam Constitutional: well nourished; no acute distress Respiratory: no respiratory distress, no labored breathing and no retractions Auscultation: + diminished lung sounds (Bases bilateral); no crackles, no rales, no rhonchi and no wheezes Gastrointestinal (Abdomen): Inspection/Auscultation: normal bowel sounds; abdomen not distended Percussion/Palpation: abdomen soft; abdomen nontender, no guarding and abdomen not rigid Neurologic: CN's II-XI intact bilaterally and moves all extremities; no focal motor deficits Results & Data Vital Signs (Past 12 Hours) Vital Signs Temp Pulse Pulse Resp BP BP BP 02/09/23 08:50 36.5 C 84 19 136/99 02/09/23 08:22 114 H 02/09/23 05:04 123 H 123/84 02/09/23 04:49 110 H 128/64 02/09/23 04:35 36.4 C L 124 H 16 128/64 02/09/23 02:25 115 H 109/75 02/09/23 01:14 113 H 02/09/23 00:53 126 H 95/64 L 02/09/23 00:15 106 H 100/66 02/08/23 23:15 113 H 117/81 02/08/23 23:03 115 H 119/80 02/08/23 22:46 120 H 117/84 02/08/23 22:15 118 H 118/81 02/08/23 22:00 120 H 106/75 02/08/23 21:58 118 H 02/08/23 21:42 128 H 125/86 02/08/23 21:19 144 H 136/95 Pulse Ox O2 Del Method 02/09/23 08:50 92 Room Air 02/09/23 08:22 02/09/23 05:04 02/09/23 04:49 02/09/23 04:35 02/09/23 02:25 02/09/23 01:14 02/09/23 00:53 02/09/23 00:15 02/08/23 23:15 02/08/23 23:03 02/08/23 22:46 02/08/23 22:15 02/08/23 22:00 02/08/23 21:58 02/08/23 21:42 02/08/23 21:19 Laboratory Results Cardiac Enzymes 02/08/23 02/09/23 Range/Units 18:16 05:22 AST 35 25 (13-39) U/L Troponin I High Sens 17.5 H (0-14) pg/ml CBC 02/08/23 02/09/23 Range/Units 18:16 05:22 WBC 8.55 7.06 (4.8-10.8) K/ul RBC 5.09 4.45 (4.20-5.40) M/uL Hgb 15.4 13.7 (12.0-16.0) g/dl Hct 47.2 H 41.4 (37.0-47.0) % Plt Count 131 104 L (130-400) K/uL Neut # (Auto) 5.89 4.57 (1.40-6.50) K/uL Lymph # (Auto) 1.61 1.38 (1.20-3.40) K/uL Banner # (Auto) 0.86 H 0.80 H (0.11-0.59) K/uL Eos # (Auto) 0.11 0.24 (0.00-0.50) K/uL Baso # (Auto) 0.05 0.03 (0.00-0.20) K/uL Comprehensive Metabolic Panel 02/08/23 02/09/23 Range/Units 18:16 05:22 Sodium 140 141 (136-145) mmol/L Potassium 4.5 3.8 (3.5-5.1) mmol/L Chloride 107 108 H (98-107) mmol/L Carbon Dioxide 27 27 (21-32) mmol/L BUN 16 14 (6-23) mg/dl Creatinine 1.12 0.96 (0.6-1.2) mg/dl Glucose 99 87 (70-99(Fasting)) mg/dl Calcium 9.0 9.1 (8.6-10.3) mg/dl AST 35 25 (13-39) U/L ALT 52 40 (7-52) U/L Alkaline Phosphatase 49 42 (34-104) U/L Total Protein 6.3 5.6 L (6.0-8.3) gm/dl Albumin 3.9 3.8 (3.4-5.0) gm/dl Intake and Output 02/08/23 02/09/23 02/09/23 22:59 06:59 14:59 Intake Total 5 / 146.833 141.833 / 146.833 0 / 0 Balance 5 / 146.833 141.833 / 146.833 0 / 0 Intake: IV 5 / 146.833 141.833 / 146.833 0 / 0 Albumin 25% 25 gm In 100 ml @ 100 / 100 50 mls/hr IV ONE ONE Rx#: [id number] dilTIAZem HCL 125 mg In 5 / 46.833 41.833 / 46.833 0 / 0 Dextrose 5% 100 ml @ 10 MG/HR 10 mls/hr IV .[id number] ABRAHAM Rx#: [id number] Other: Other Intake Source Sips # Unmeasured Voids 1 1 Weight 80.4 kg Weight Measurement Method Standing Scale
[2023-02-09] MEDS ORDERED: 0.2 MICRON FILTER SET 1 EACH IV STA (09:58)
[2023-02-09] MEDS ORDERED: AMIODARONE IV BOLUS & DRIP IV STA (09:58)
[2023-02-09] MEDS ORDERED: STAT IV Infusion **Titration per Protocol STA (09:58)
[2023-02-09] MEDS ORDERED: AMIODARONE / D5W 150 MG/100 ML BAG IV STA (09:58)
[2023-02-09] MEDS ORDERED: AMIODARONE / D5W 360 MG/200 ML BAG IV ONE (10:08)
[2023-02-09] MEDS ORDERED: FUROSEMIDE 40 MG/4 ML VIAL IV ONE (11:26)
--- NOTE | 2023-02-09 12:01 | Electrocardiogram Report ---
Test Reason : Blood Pressure : / mmHG Vent. Rate : 145 BPM Atrial Rate : 000 BPM P-R Int : 000 ms QRS Dur : 070 ms QT Int : 312 ms P-R-T Axes : 000 038 270 degrees QTc Int : 484 ms Atrial fibrillation with rapid ventricular response possible Anterior infarct , age undetermined Nonspecific ST abnormality Abnormal ECG When compared with ECG of 31-DEC-2022 07:07, Atrial fibrillation has replaced Sinus rhythm Vent. rate has increased BY 90 BPM Anterior infarct is now Present Nonspecific T wave abnormality, worse in Anterolateral leads Confirmed by Chris Cutler ([id number]) on 02/09/2023 12:00:27 PM Referred By: Serafin Amaya Confirmed By:Ole Cutler
--- NOTE | 2023-02-09 14:01 | Hospitalist Progress Note ---
Date of Service February 09, 2023 Assessment & Plan (1) Atrial fibrillation with RVR: (2) HFrEF (heart failure with reduced ejection fraction): (3) Dyslipidemia: Plan: per admitting service notes with addendum: This is an 83-year-old female who has a significant past medical history of paroxysmal atrial fibrillation anticoagulated on Eliquis, chronic HFfEF, hx of corneal transplant 10 yrs ago,hyperlipidemia, fecal incontinence and history of breast cancer who presents to ED secondary to MOSQUEDA x 2-3 days. Patient hospitalized 12/26 to 12/31 secondary to A-fib with RVR. Echocardiogram at that time revealed reduced EF with 40 to 45%, moderate global hypokinesis of left ventricle, right ventricle moderately dilated, left atrium moderately dilated, right atrium moderately dilated, aortic valve sclerosis, moderate to severe MR and moderate to severe TR. patient initially treated aggressively with medical management including high-dose metoprolol and digoxin without rate control. She underwent CARISSA guided cardioversion with success. At that time she was found to be in sinus bradycardia likely secondary to aggressive metoprolol use. At this time her metoprolol succinate was reduced back to 12.5 twice daily. On admission she is currently taking 37.5 mg daily. There was discussion at that time about possible tachybradycardia syndrome. Atrial fibrillation with RVR Acute HFrEF -possible tachycardia mediated during most recent hospitalization Admit to PCU Patient currently on IV diltiazem drip will convert to metoprolol tartrate 25 twice daily TSH normal during december hospitalization consult cardiology N.p.o. after midnight in event patient requires additional cardioversion continue eliquis she is euvolemic but will need close monitoring of volume status 02/09 Amiodarone IV started today already on Eliquis Lasix IV also given for mild volume overload continue to monitor closely HLD continue statin chronic stable Hx of corneal transplant continue pred forte chronic, stable DVT ppx: Eliquis PCP: Monique FULL CODE Dispo: anticipate d/c to home when medically stable Admission and Anticipated Discharge Date Admission Date: February 08, 2023 Subjective ff up for atrial fibrillation in RVR, etc seen resting in bed, comfortable states she feels improved compared to yesterday no active dyspnea, chest pain, palpitations on exam no other new symptoms Review of Systems Review of Systems: all noted and negative except for above Physical Exam Physical Exam: General- oriented x 3, not in distress, speaks in sentences with no effort or accessory muscle use Eyes- anicteric Neck- no JVD Lungs- clear breath sounds bilaterally, no rales/wheezes Heart- mild tachycardia, irregularly irregular rhythm no murmurs Abdomen- normal bowel sounds, nondistended, soft, nontender Extremities- no pretibial edema, no calf tenderness Neuro- alert, oriented x 3; no gross focal neurologic deficits Skin- warm & dry Results & Data Results & Data Vital Signs (Past 12 Hours) Vital Signs Temp Pulse Pulse Resp BP BP Pulse Ox 02/09/23 12:32 36.7 C 112 H 17 110/75 95 02/09/23 08:50 36.5 C 84 19 136/99 92 02/09/23 08:22 114 H 02/09/23 05:04 123 H 123/84 02/09/23 04:49 110 H 128/64 02/09/23 04:35 36.4 C L 124 H 16 128/64 02/09/23 02:25 115 H 109/75 O2 Del Method 02/09/23 12:32 Room Air 02/09/23 08:50 Room Air 02/09/23 08:22 02/09/23 05:04 02/09/23 04:49 02/09/23 04:35 02/09/23 02:25 all noted and reviewed including below
--- NOTE | 2023-02-09 16:31 | Electrocardiogram Report ---
Test Reason : Blood Pressure : / mmHG Vent. Rate : 119 BPM Atrial Rate : 082 BPM P-R Int : 000 ms QRS Dur : 074 ms QT Int : 334 ms P-R-T Axes : 000 047 260 degrees QTc Int : 469 ms Atrial fibrillation with rapid ventricular response Low voltage QRS Poor R wave progression, consider anterior OK vs. lead placement vs. LVH Abnormal ECG Confirmed by Chris Cutler ([id number]) on 02/09/2023 4:30:45 PM Referred By: Serafin Amaya Confirmed By:Ole Cutler
[2023-02-09] MEDS: AMIODARONE / D5W 360 MG/200 ML BAG IV SCH (16:47)
[2023-02-09] MEDS: ROSUVASTATIN CALCIUM 10 MG TAB PO SCH (20:00)
[2023-02-09] MEDS: prednisoLONE acetate 1% OP SUSP 5 ML BTL OP SCH (20:01)
[2023-02-10] MEDS: AMIODARONE / D5W 360 MG/200 ML BAG IV SCH (03:26)
[2023-02-10 06:41] LABS: Anion Gap 7 (3-11); BUN Creatinine Ratio 14.8 (10-20); Blood Urea Nitrogen 16 mg/dl (6-23); Calcium 9.3 mg/dl (8.6-10.3); Carbon Dioxide 28 mmol/L (21-32); Chloride 104 mmol/L (98-107); Est GFR (African American) 54.6 ml/min; Est GFR (Non-African American) 47.1 ml/min; Glucose 104 mg/dl (70-99(Fasting)); Magnesium 1.9 mg/dl (1.7-2.4); Sodium 139 mmol/L (136-145)
[2023-02-10] MEDS: METOPROLOL TARTRATE 25 MG TAB PO SCH ×2 (09:05→21:20)
[2023-02-10] MEDS: APIXABAN 5 MG TABLET PO SCH ×2 (09:05→21:21)
[2023-02-10] MEDS: CALCIUM CARBONATE 1250MG TAB PO SCH ×2 (09:05→21:21)
[2023-02-10] MEDS: MULTIVITAMIN TAB PO SCH (09:05)
[2023-02-10] MEDS: AMIODARONE 200 MG TAB PO SCH ×2 (11:26→16:16)
--- NOTE | 2023-02-10 12:24 | Electrocardiogram Report ---
Test Reason : Blood Pressure : / mmHG Vent. Rate : 133 BPM Atrial Rate : 288 BPM P-R Int : 000 ms QRS Dur : 072 ms QT Int : 298 ms P-R-T Axes : 000 023 262 degrees QTc Int : 443 ms Atrial fibrillation with rapid ventricular response Poor R wave progression, consider anterior NV vs. lead placement vs. LVH Abnormal ECG When compared with ECG of 09-FEB-2023 05:28, No significant change was found Confirmed by Chris Cutler ([id number]) on 02/10/2023 12:23:55 PM Referred By: Serafin Amaya Confirmed By:Ole Cutler
--- NOTE | 2023-02-10 13:40 | Hospitalist Progress Note ---
Date of Service February 10, 2023 Assessment & Plan (1) Atrial fibrillation with RVR: (2) HFrEF (heart failure with reduced ejection fraction): (3) Dyslipidemia: Plan: per admitting service notes with addendum: This is an 83-year-old female who has a significant past medical history of paroxysmal atrial fibrillation anticoagulated on Eliquis, chronic HFfEF, hx of corneal transplant 10 yrs ago,hyperlipidemia, fecal incontinence and history of breast cancer who presents to ED secondary to MOSQUEDA x 2-3 days. Patient hospitalized 12/26 to 12/31 secondary to A-fib with RVR. Echocardiogram at that time revealed reduced EF with 40 to 45%, moderate global hypokinesis of left ventricle, right ventricle moderately dilated, left atrium moderately dilated, right atrium moderately dilated, aortic valve sclerosis, moderate to severe MR and moderate to severe TR. patient initially treated aggressively with medical management including high-dose metoprolol and digoxin without rate control. She underwent CARISSA guided cardioversion with success. At that time she was found to be in sinus bradycardia likely secondary to aggressive metoprolol use. At this time her metoprolol succinate was reduced back to 12.5 twice daily. On admission she is currently taking 37.5 mg daily. There was discussion at that time about possible tachybradycardia syndrome. Atrial fibrillation with RVR Acute HFrEF -possible tachycardia mediated during most recent hospitalization Admit to PCU Patient currently on IV diltiazem drip will convert to metoprolol tartrate 25 twice daily TSH normal during december hospitalization consult cardiology N.p.o. after midnight in event patient requires additional cardioversion continue eliquis she is euvolemic but will need close monitoring of volume status 02/10 Amiodarone IV --> 400mg PO TID already on Eliquis Lasix IV also given for mild volume overload continue to monitor closely HLD continue statin chronic stable Hx of corneal transplant continue pred forte chronic, stable DVT ppx: Eliquis PCP: Monique FULL CODE Dispo: anticipate d/c to home when medically stable Admission and Anticipated Discharge Date Admission Date: February 08, 2023 Subjective ff up for atrial fibrillation, etc seen resting in bed, comfortable no chest pain, dyspnea, palpitations, dizziness no bleeding no other symptoms Review of Systems Review of Systems: all noted and negative except for above Physical Exam Physical Exam: General- oriented x 3, not in distress, speaks in sentences with no effort or accessory muscle use Eyes- anicteric Neck- no JVD Lungs- clear breath sounds bilaterally, no rales/wheezes Heart- mild tachycardia, irregularly irregular ryhthm Abdomen- normal bowel sounds, nondistended, soft, nontender Extremities- no pretibial edema, no calf tenderness Neuro- alert, oriented x 3; no gross focal neurologic deficits Skin- warm & dry Results & Data Results & Data Vital Signs (Past 12 Hours) Vital Signs Temp Pulse Pulse Resp BP Pulse Ox O2 Del Method 02/10/23 11:31 36.5 C 120 H 18 113/81 97 Room Air 02/10/23 09:42 Room Air 02/10/23 08:10 36.7 C 119 H 18 135/87 94 Room Air 02/10/23 07:31 128 H 02/10/23 03:58 36.7 C 117 H 20 125/83 94 Room Air all noted and reviewed including below
[2023-02-10] MEDS ORDERED: FUROSEMIDE 40 MG/4 ML VIAL IV ONE (15:51)
[2023-02-10] MEDS ORDERED: POTASSIUM CHLORIDE CRTAB 20 MEQ TABCR PO STA (15:51)
--- NOTE | 2023-02-10 15:51 | Cardiology Progress Note ---
Date of Service February 10, 2023 Assessment & Plan (1) Atrial fibrillation with RVR: (2) HFrEF (heart failure with reduced ejection fraction): Plan 83-year-old female presents with recurrent atrial fibrillation and rapid ventricular response with acute on chronic heart failure. Mild LV systolic dysfunction per most recent echocardiogram. Intravenous amiodarone initiated 02/09/2023 although heart rate remains elevated. Transition to oral amiodarone 400 mg 3 times daily in addition to metoprolol tartrate 25 mg twice daily. Plan elective external direct-current cardioversion on Monday. She has been appropriately/adequately anticoagulated with Eliquis uninterrupted since her most recent hospitalization. Transesophageal echocardiogram performed 12/30/2022 without evidence of left atrial appendage thrombus. Recommend 1 dose of IV Lasix this evening. Repeat basic metabolic panel in a.m. Admission and Anticipated Discharge Date Admission Date: February 08, 2023 Subjective Patient seen examined the bedside. Feeling well currently. Denies palpitations or chest pain. Heart rate remains elevated. Telemetry revealing atrial fibrillation with heart rate ranging from 110 to 130 bpm. Review of Systems Review of Systems: All systems reviewed & are unremarkable except as noted in Subjective Physical Exam Constitutional: well nourished; no acute distress Respiratory: no respiratory distress, no labored breathing and no retractions Auscultation: + diminished lung sounds (Bases bilateral); no crackles, no rales, no rhonchi and no wheezes Cardiovascular: Rate/Rhythm: + tachycardic and + irregularly irregular Heart Sounds: normal S1 and normal S2; no murmur Vessels: radial pulses present; no JVD and no carotid bruit Extremities: no edema Gastrointestinal (Abdomen): Inspection/Auscultation: normal bowel sounds; abdomen not distended Percussion/Palpation: abdomen soft; abdomen nontender, no guarding and abdomen not rigid Neurologic: CN's II-XI intact bilaterally and moves all extremities; no focal motor deficits Results & Data Vital Signs (Past 12 Hours) Vital Signs Temp Pulse Pulse Resp BP Pulse Ox O2 Del Method 02/10/23 11:31 36.5 C 120 H 18 113/81 97 Room Air 02/10/23 09:42 Room Air 02/10/23 08:10 36.7 C 119 H 18 135/87 94 Room Air 02/10/23 07:31 128 H 02/10/23 03:58 36.7 C 117 H 20 125/83 94 Room Air Laboratory Results Comprehensive Metabolic Panel 02/10/23 02/10/23 Range/Units 05:24 06:44 Sodium 139 (136-145) mmol/L Potassium TNP 4.0 Chloride 104 (98-107) mmol/L Carbon Dioxide 28 (21-32) mmol/L BUN 16 (6-23) mg/dl Creatinine 1.08 (0.6-1.2) mg/dl Glucose 104 H (70-99(Fasting)) mg/dl Calcium 9.3 (8.6-10.3) mg/dl Intake and Output 02/10/23 02/10/23 02/10/23 06:59 14:59 22:59 Intake Total 550 / 850 133.879 / 133.879 Output Total 650 / 1775 Balance -100 / -925 133.879 / 133.879 Intake: IV 200 / 500 133.879 / 133.879 Amiodarone / D5w 360 mg In 200 200 / 200 133.879 / 133.879 ml @ 0.5 MG/MIN 16.667 mls/hr IV .Q12H [facility] Rx#:[id number] Oral 350 / 350 Output: Urine 650 / 1775 Other: Weight 80.7 kg Weight Measurement Method Built in [facility]
[2023-02-10] MEDS: prednisoLONE acetate 1% OP SUSP 5 ML BTL OP SCH (21:19)
[2023-02-10] MEDS: ROSUVASTATIN CALCIUM 10 MG TAB PO SCH (21:20)
[2023-02-11 05:25] LABS: Calcium 9.5 mg/dl (8.6-10.3); Magnesium 1.8 mg/dl (1.7-2.4); Potassium 3.8 mmol/L (3.5-5.1)
[2023-02-11 05:31] LABS: BUN Creatinine Ratio 14.4 (10-20); Creatinine Clr Calc Pharmacy 43.4 ml/min; Est GFR (African American) 62.2 ml/min; Est GFR (Non-African American) 53.6 ml/min
[2023-02-11] MEDS: CALCIUM CARBONATE 1250MG TAB PO SCH ×2 (09:01→20:17)
[2023-02-11] MEDS: AMIODARONE 200 MG TAB PO SCH ×3 (09:01→17:30)
[2023-02-11] MEDS: METOPROLOL TARTRATE 25 MG TAB PO SCH ×2 (09:01→20:16)
[2023-02-11] MEDS: MULTIVITAMIN TAB PO SCH (09:01)
[2023-02-11] MEDS: APIXABAN 5 MG TABLET PO SCH ×2 (09:02→20:16)
--- NOTE | 2023-02-11 11:46 | Cardiology Progress Note ---
Date of Service February 11, 2023 Assessment & Plan (1) Atrial fibrillation with RVR: (2) HFrEF (heart failure with reduced ejection fraction): Plan 83-year-old female presents with recurrent atrial fibrillation and rapid ventricular response with acute on chronic heart failure. Mild LV systolic dysfunction per most recent echocardiogram. Intravenous amiodarone initiated 02/09/2023 now transitioned to oral amiodarone 400 mg 3 times daily in addition to metoprolol tartrate 25 mg twice daily. Plan elective external direct-current cardioversion on Monday. She has been appropriately/adequately anticoagulated with Eliquis uninterrupted since her most recent hospitalization. Transesophageal echocardiogram performed 12/30/2022 without evidence of left atrial appendage thrombus. Supplement potassium today EKG in a.m. Tentative plans for cardioversion Monday pending course Admission and Anticipated Discharge Date Admission Date: February 08, 2023 Subjective Patient seen and examined, chart, medications, telemetry reviewed. No acute complaints. Heart rate still elevated. No dizziness or lightheadedness no chest pains. No orthopnea No arrhythmias on telemetry Review of Systems Review of Systems: All systems reviewed & are unremarkable except as noted in Subjective Physical Exam Constitutional: well nourished; no acute distress Respiratory: no respiratory distress, no labored breathing and no retractions Auscultation: + diminished lung sounds (Bases bilateral); no crackles, no rales, no rhonchi and no wheezes Cardiovascular: Rate/Rhythm: + tachycardic and + irregularly irregular Heart Sounds: normal S1 and normal S2; no murmur Vessels: radial pulses present; no JVD and no carotid bruit Extremities: no edema Gastrointestinal (Abdomen): Inspection/Auscultation: normal bowel sounds; abdomen not distended Percussion/Palpation: abdomen soft; abdomen nontender, no guarding and abdomen not rigid Neurologic: CN's II-XI intact bilaterally and moves all extremities; no focal motor deficits Results & Data Vital Signs (Past 12 Hours) Vital Signs Temp Pulse Pulse Resp BP Pulse Ox O2 Del Method 02/11/23 07:52 128 H 02/11/23 07:35 36.6 C 90 18 118/88 94 Room Air 02/11/23 02:59 36.3 C L 80 20 113/76 92 Room Air Laboratory Results Laboratory Results - last 24 hr 02/11/23 04:13 Sodium 137 Potassium 3.8 Chloride 102 Carbon Dioxide 28 Anion Gap 7 BUN 14 Creatinine 0.97 Est Cr Clr Drug Dosing 43.4 Est GFR ( Amer) 62.2 Est GFR (Non-Af Amer) 53.6 BUN/Creatinine Ratio 14.4 Glucose 101 H Calcium 9.5 Magnesium 1.8
[2023-02-11] MEDS ORDERED: POTASSIUM CHLORIDE CRTAB 20 MEQ TABCR PO ONE (16:06)
--- NOTE | 2023-02-11 16:35 | Hospitalist Progress Note ---
Date of Service February 11, 2023 Assessment & Plan (1) Atrial fibrillation with RVR: (2) HFrEF (heart failure with reduced ejection fraction): (3) Dyslipidemia: Plan: per admitting service notes with addendum: This is an 83-year-old female who has a significant past medical history of paroxysmal atrial fibrillation anticoagulated on Eliquis, chronic HFfEF, hx of corneal transplant 10 yrs ago,hyperlipidemia, fecal incontinence and history of breast cancer who presents to ED secondary to MOSQUEDA x 2-3 days. Patient hospitalized 12/26 to 12/31 secondary to A-fib with RVR. Echocardiogram at that time revealed reduced EF with 40 to 45%, moderate global hypokinesis of left ventricle, right ventricle moderately dilated, left atrium moderately dilated, right atrium moderately dilated, aortic valve sclerosis, moderate to severe MR and moderate to severe TR. patient initially treated aggressively with medical management including high-dose metoprolol and digoxin without rate control. She underwent CARISSA guided cardioversion with success. At that time she was found to be in sinus bradycardia likely secondary to aggressive metoprolol use. At this time her metoprolol succinate was reduced back to 12.5 twice daily. On admission she is currently taking 37.5 mg daily. There was discussion at that time about possible tachybradycardia syndrome. Atrial fibrillation with RVR Acute HFrEF -possible tachycardia mediated during most recent hospitalization Admit to PCU Patient currently on IV diltiazem drip will convert to metoprolol tartrate 25 twice daily TSH normal during december hospitalization consult cardiology N.p.o. after midnight in event patient requires additional cardioversion continue eliquis she is euvolemic but will need close monitoring of volume status 02/11 Amiodarone IV --> 400mg PO TID already on Eliquis Lasix IV also given for mild volume overload continue to monitor closely plan for cardioversion on Monday HLD continue statin chronic stable Hx of corneal transplant continue pred forte chronic, stable DVT ppx: [place] PCP: Monique FULL CODE Dispo: anticipate d/c to home when medically stable Admission and Anticipated Discharge Date Admission Date: February 08, 2023 Subjective ff up for a fib in rvr, etc seen resting in bed, comfortable watching TV states she feels fine overall no chest pain, dyspnea, palpitations, dizziness ambulates to the bathroom with no problems breathing seems to be improving no other symptoms Review of Systems Review of Systems: all noted and negative except for above Physical Exam Physical Exam: General- oriented x 3, not in distress, speaks in sentences with no effort or accessory muscle use Eyes- anicteric Neck- no JVD Lungs-mild rales at the bases no wheezing Heart- normal rate, regular rhythm; no murmurs Abdomen- normal bowel sounds, nondistended, soft, nontender Extremities- no pretibial edema, no calf tenderness Neuro- alert, oriented x 3; no gross focal neurologic deficits Skin- warm & dry Results & Data Results & Data Vital Signs (Past 12 Hours) Vital Signs Temp Pulse Pulse Resp BP Pulse Ox O2 Del Method 02/11/23 12:10 36.5 C 102 H 18 102/74 92 Room Air 02/11/23 07:52 128 H 02/11/23 07:35 36.6 C 90 18 118/88 94 Room Air all noted and reviewed including below
[2023-02-11] MEDS: ROSUVASTATIN CALCIUM 10 MG TAB PO SCH (20:16)
[2023-02-11] MEDS: prednisoLONE acetate 1% OP SUSP 5 ML BTL OP SCH (20:18)
[2023-02-12 06:29] LABS: BUN Creatinine Ratio 18.5 (10-20); Calcium 9.3 mg/dl (8.6-10.3); Creatinine Clr Calc Pharmacy 51.5 ml/min; Est GFR (African American) 77.3 ml/min; Est GFR (Non-African American) 66.7 ml/min; Magnesium 1.9 mg/dl (1.7-2.4); Potassium 4.3 mmol/L (3.5-5.1)
[2023-02-12] MEDS: APIXABAN 5 MG TABLET PO SCH ×2 (08:09→20:13)
[2023-02-12] MEDS: AMIODARONE 200 MG TAB PO SCH ×2 (08:09→16:04)
[2023-02-12] MEDS: CALCIUM CARBONATE 1250MG TAB PO SCH ×2 (08:09→20:13)
[2023-02-12] MEDS: MULTIVITAMIN TAB PO SCH (08:09)
[2023-02-12] MEDS: METOPROLOL TARTRATE 25 MG TAB PO SCH (08:09)
--- NOTE | 2023-02-12 10:44 | Cardiology Progress Note ---
Date of Service February 12, 2023 Assessment & Plan (1) Atrial fibrillation with RVR: (2) HFrEF (heart failure with reduced ejection fraction): Plan 83-year-old female presents with recurrent atrial fibrillation and rapid ventricular response with acute on chronic heart failure. Mild LV systolic dysfunction per most recent echocardiogram. Intravenous amiodarone initiated 02/09/2023 now transitioned to oral amiodarone 400 mg 3 times daily in addition to metoprolol tartrate 25 mg twice daily. Plan elective external direct-current cardioversion on Monday. She has been appropriately/adequately anticoagulated with Eliquis uninterrupted since her most recent hospitalization. Transesophageal echocardiogram performed 12/30/2022 without evidence of left atrial appendage thrombus. Reduce amiodarone to 400 mg twice per day Hold p.m. dose of metoprolol succinate Chest x-ray given mild cough, single dose of IV furosemide 20 mg Planned synchronized electrical cardioversion in a.m. Admission and Anticipated Discharge Date Admission Date: February 08, 2023 Subjective Patient seen and examined, chart, medications, telemetry reviewed. Mild cough otherwise no acute complaints Still remains in atrial fibrillation with elevated ventricular sponsor rate Review of Systems Review of Systems: All systems reviewed & are unremarkable except as noted in Subjective Physical Exam Constitutional: well nourished; no acute distress Neck: trachea midline, no thyromegaly Respiratory: no respiratory distress, no labored breathing and no retractions Auscultation: + diminished lung sounds (Bases bilateral) and + crackles (Bilateral bases with cough); no rales, no rhonchi and no wheezes Cardiovascular: Rate/Rhythm: + tachycardic and + irregularly irregular Heart Sounds: normal S1 and normal S2; no murmur Vessels: radial pulses present; no JVD and no carotid bruit Extremities: no edema Gastrointestinal (Abdomen): Inspection/Auscultation: normal bowel sounds; abdomen not distended Percussion/Palpation: abdomen soft; abdomen nontender, no guarding and abdomen not rigid Neurologic: CN's II-XI intact bilaterally and moves all extremities; no focal motor deficits Results & Data Vital Signs (Past 12 Hours) Vital Signs Temp Pulse Pulse Resp BP BP Pulse Ox 02/12/23 07:40 02/12/23 07:34 36.6 C 125 H 18 116/78 94 02/12/23 07:20 119 H 02/12/23 03:15 36.8 C 118 H 20 116/82 96 O2 Del Method 02/12/23 07:40 Room Air 02/12/23 07:34 Room Air 02/12/23 07:20 02/12/23 03:15 Room Air
[2023-02-12] MEDS ORDERED: FUROSEMIDE INJ 20 MG/2 ML VIAL IV ONE (10:47)
--- NOTE | 2023-02-12 11:26 | Anesthesiology Consultation ---
Date of Service February 12, 2023 Assessment & Plan Chart Review Chart Review: Acceptable Risk for Surgery and Patient NOT seen in Pre Admission Testing Consults Requested none ASA ASA4 Proposed Anesthesia Anesthesia Type: MAC History Height/Weight Height: 5 ft 3 in Weight: 79.3 kg Allergies Allergy/AdvReac Type Severity Reaction Status Date / Time Fabric Softeners Allergy Mild RASH Uncoded 02/08/23 18:23 Medications Home Medications Medication Instructions Recorded Confirmed Last Taken calcium carbonate 500 mg calcium 500 mg PO BID 12/26/22 02/08/23 02/08/23 (1,250 mg) tablet multivitamin 1 tab PO DAILY 12/26/22 02/08/23 02/08/23 prednisolone acetate 1 % eye 1 drp OPB HS 12/26/22 02/08/23 02/08/23 drops,suspension (Pred Forte) apixaban 5 mg tablet (Eliquis) 5 mg PO BID #60 tabs 12/27/22 02/08/23 02/08/23 metoprolol succinate 25 mg 37.5 mg PO QAM 02/08/23 02/08/23 02/08/23 tablet,extended release 24 hr rosuvastatin 10 mg tablet 10 mg PO HS 02/08/23 02/08/23 02/07/23 Active Medications Generic Name Dose Route Start Last Admin Trade Name Turnerq PRN Reason Stop Dose Admin Apixaban 5 mg 02/08/23 21:00 02/12/23 08:09 Apixaban 5 Mg Tablet PO 03/10/23 20:59 5 mg BID ABRAHAM Administration Calcium Carbonate 1,250 mg 02/08/23 21:00 02/12/23 08:09 Calcium Carbonate 1250mg Tab PO 03/10/23 20:59 1,250 mg BID ABRAHAM Administration Metoprolol Tartrate 25 mg 02/08/23 21:00 02/12/23 08:09 Metoprolol Tartrate 25 Mg Tab PO 03/10/23 20:59 25 mg BID ABRAHAM Administration Multivitamins 1 tab 02/09/23 09:00 02/12/23 08:09 Multivitamin Tab PO 03/11/23 08:59 1 tab DAILY ABRAHAM Administration Prednisolone Acetate 1 drops 02/09/23 21:00 02/11/23 20:18 Prednisolone Acetate 1% Op Susp 5 Ml Btl OP 03/11/23 20:59 1 drops HS ABRAHAM Administration Rosuvastatin Calcium 10 mg 02/08/23 21:00 02/11/23 20:16 Rosuvastatin Calcium 10 Mg Tab PO 03/10/23 20:59 10 mg HS ABRAHAM Administration Past Medical History Medical History Fecal incontinence Dyslipidemia CHF Moderately decreased heart Fxn Obese HLD HTN ASCVD MR/TR-mod. -severe RV dilated Exercise / Class Metabolic Activity III < 4 Walking/Shop/Light housework Past Family History Family History Other COPD (chronic obstructive pulmonary disease) Lung cancer Past Surgical History Surgical History Hx of cataract removal with insertion of prosthetic lens History of adenoidectomy H/O mastectomy Past Anesthesia History No Hx of Anesthesia Complications and No Family Hx of Anesthesia Complications History of PONV No Hx of PONV and No Hx of Motion Sickness Social History Smoking Status: Never smoker Hx Alcohol Use: Yes Alcohol type: beer and wine alcohol intake frequency: holidays/special occasions only Hx Substance Use: No Physical Exam Vital Signs Last Vital Signs Temp 36.6 C 02/12/23 07:34 Pulse 125 H 02/12/23 07:34 Resp 18 02/12/23 07:34 BP 116/78 02/12/23 07:34 Pulse Ox 94 02/12/23 07:34 O2 Del Method Room Air 02/12/23 07:40 Testing Laboratory Results 02/09/23 05:22 02/12/23 05:09 Urine Color Yellow 02/08/23 21:20 Urine Appearance Cloudy (Clear) A 02/08/23 21:20 Urine pH 5.5 (4.5-7.5) 02/08/23 21:20 Ur Specific [place] 1.018 (1.000-1.030) 02/08/23 21:20 Urine Protein 1+ (Negative) H 02/08/23 21:20 Urine Glucose (UA) Negative (Negative) 02/08/23 21:20 Urine Ketones Trace (Negative) H 02/08/23 21:20 Urine Nitrite Negative (Negative) 02/08/23 21:20 Ur Leukocyte Esterase 2+ (Negative) H 02/08/23 21:20 Urine WBC (Auto) 10-30 /hpf (0-5) H 02/08/23 21:20 Urine RBC (Auto) 0-4 /hpf (0-4) 02/08/23 21:20 U Hyaline Cast (Auto) 1-5 /lpf (0-5) 02/08/23 21:20 U Epithel Cells (Auto) >30 /lpf (0-5) H 02/08/23 21:20 Urine Bacteria (Auto) Negative (Negative) 02/08/23 21:20 02/08/23 21:20 Urine Culture - Final Urine,Clean Catch Three types of organisms present, all high counts probable skin steff. No further identifications or sensitivities to follow. Electrocardiogram Date: 02/10/23 Findings: + AFIB @ (A Fib w/ RVR @ 133;poor R wave progression;ST & T wave abnormality) Chest X-Ray Date: 02/08/23 Findings: + cardiomegaly, + pulmonary vascular congestion (mild pulmonary edema) and + pleural effusion (trace B/L pleural effusion) Echocardiogram Date: 12/27/22 EF: 40% RWMA: + hypokinetic (moderate global HK) Other Findings: + atrial enlargement (RA/LA-moderately dilated) Valvular Disease: + MR (mod.-severe) RV-moderately dilated TR-mod.-severe
--- NOTE | 2023-02-12 15:17 | Hospitalist Progress Note ---
Date of Service February 12, 2023 Assessment & Plan (1) Atrial fibrillation with RVR: (2) HFrEF (heart failure with reduced ejection fraction): (3) Dyslipidemia: Plan: per admitting service notes with addendum: This is an 83-year-old female who has a significant past medical history of paroxysmal atrial fibrillation anticoagulated on Eliquis, chronic HFfEF, hx of corneal transplant 10 yrs ago,hyperlipidemia, fecal incontinence and history of breast cancer who presents to ED secondary to MOSQUEDA x 2-3 days. Patient hospitalized 12/26 to 12/31 secondary to A-fib with RVR. Echocardiogram at that time revealed reduced EF with 40 to 45%, moderate global hypokinesis of left ventricle, right ventricle moderately dilated, left atrium moderately dilated, right atrium moderately dilated, aortic valve sclerosis, moderate to severe MR and moderate to severe TR. patient initially treated aggressively with medical management including high-dose metoprolol and digoxin without rate control. She underwent CARISSA guided cardioversion with success. At that time she was found to be in sinus bradycardia likely secondary to aggressive metoprolol use. At this time her metoprolol succinate was reduced back to 12.5 twice daily. On admission she is currently taking 37.5 mg daily. There was discussion at that time about possible tachybradycardia syndrome. Atrial fibrillation with RVR Acute HFrEF -possible tachycardia mediated during most recent hospitalization Admit to PCU Patient currently on IV diltiazem drip will convert to metoprolol tartrate 25 twice daily TSH normal during december hospitalization consult cardiology N.p.o. after midnight in event patient requires additional cardioversion continue eliquis she is euvolemic but will need close monitoring of volume status 02/11 Amiodarone IV --> 400mg PO TID already on Eliquis Lasix IV also given for mild volume overload continue to monitor closely plan for cardioversion on Monday 02/12 CXR ordered Biofire: pending for Cardioversion tomorrow HLD continue statin chronic stable Hx of corneal transplant continue pred forte chronic, stable DVT ppx: Eliquis PCP: Monique FULL CODE Dispo: anticipate d/c to home when medically stable Admission and Anticipated Discharge Date Admission Date: February 08, 2023 Subjective ff up for a fib RVR, etc seen resting in bed, comfortable reports she is coughing up some phlegm happens intermittently at home no sore throat, cough, fever/chills no chest pain, dyspnea, palpitations, dizziness no other new symptoms Review of Systems Review of Systems: all noted and negative except for above Physical Exam Physical Exam: General- oriented x 3, not in distress, speaks in sentences with no effort or accessory muscle use Eyes- anicteric Neck- no JVD Lungs- mild rales at the bases Heart- mild tachy, irregularly irregular rhythm; no murmurs Abdomen- normal bowel sounds, nondistended, soft, nontender Extremities- no pretibial edema, no calf tenderness Neuro- alert, oriented x 3; no gross focal neurologic deficits Skin- warm & dry Results & Data Results & Data Vital Signs (Past 12 Hours) Vital Signs Temp Pulse Pulse Resp BP Pulse Ox O2 Del Method 02/12/23 15:06 104 H 02/12/23 11:55 36.4 C L 118 H 18 116/87 94 Room Air 02/12/23 07:40 Room Air 02/12/23 07:34 36.6 C 125 H 18 116/78 94 Room Air 02/12/23 07:20 119 H all noted and reviewed including below
[2023-02-12 15:25] LABS: Adenovirus PCR Not Detected (NotDetected); Bordetella parapertussis PCR Not Detected (NotDetected); Bordetella pertussis PCR Not Detected (NotDetected); Chlamydia pneumoniae PCR Not Detected (NotDetected); Coronavirus 229E PCR Not Detected (NotDetected); Coronavirus CoV-2 (COVID19)PCR Not Detected (NotDetected); Coronavirus HKU1 PCR Not Detected (NotDetected); Coronavirus NL63 PCR Not Detected (NotDetected); Coronavirus OC43PCR Not Detected (NotDetected); Human Metapneumovirus PCR Not Detected (NotDetected); Influenza A PCR Not Detected (NotDetected); Influenza B PCR Not Detected (NotDetected); Mycoplasma pneumoniae PCR Not Detected (NotDetected); Parainfluenza Virus 1 PCR Not Detected (NotDetected); Parainfluenza Virus 2 PCR Not Detected (NotDetected); Parainfluenza Virus 3 PCR Not Detected (NotDetected); Parainfluenza Virus 4 PCR Not Detected (NotDetected); Respiratory Syncytial VirusPCR Not Detected (NotDetected)
[2023-02-12 16:13] LABS: Rhinovirus/Enterovirus PCR DETECTED (NotDetected)
--- NOTE | 2023-02-12 16:58 | XRay Report ---
XR chest 1V portable CLINICAL HISTORY: Cough, A-fib with rapid response TECHNIQUE: Single frontal radiograph of the chest was obtained. Comparison: Comparison is made to chest radiograph 02/08/2023 FINDINGS: No lines and tubes are seen. Cardiomegaly is noted. The aortic arch is calcified. Faint bibasilar air space opacities are seen. No evidence of pleural effusion or pneumothorax. IMPRESSION: Faint bibasilar airspace opacities which may represent atelectasis, pneumonia, and/or aspiration. ACT 112: Negative or not required by law. Electronically signed by: Nathanael Low M.D. 02/12/2023 4:57 PM
[2023-02-12] MEDS: prednisoLONE acetate 1% OP SUSP 5 ML BTL OP SCH (20:13)
[2023-02-12] MEDS: ROSUVASTATIN CALCIUM 10 MG TAB PO SCH (20:13)
--- NOTE | 2023-02-13 07:35 | Cardioversion ---
Date of Service February 13, 2023 Electrical Cardioversion Rpt Electrical Cardioversion Report Patient seen and examined Procedure and risk explained in detail, informed consent obtained. Formal TIMEOUT performed. Patient sedated via anesthesia consult Synchronized electrical cardioversion performed using 150J synchronized shock with successful conversion to sinus bradycardia Patient aroused having tolerated well EKG NSR at 61 bpm Poor r wave progression T wave inversion laterally QTc 450
[2023-02-13] MEDS ORDERED: LIDOCAINE 2% 2 ML VIAL/AMP(20MG/ML) INFIL ONE (07:40)
[2023-02-13] MEDS ORDERED: PROPOFOL IV EMULSION 10 MG/ML 20 ML VIAL IV ONE (07:40)
--- NOTE | 2023-02-13 07:51 | Cardiology Progress Note ---
Date of Service February 13, 2023 Assessment & Plan (1) Atrial fibrillation with RVR: (2) HFrEF (heart failure with reduced ejection fraction): Plan 83-year-old female presents with recurrent atrial fibrillation and rapid ventricular response with acute on chronic heart failure. Mild LV systolic dysfunction per most recent echocardiogram. Intravenous amiodarone initiated 02/09/2023 now transitioned to oral amiodarone 400 mg 3 times daily in addition to metoprolol tartrate 25 mg twice daily. Plan elective external direct-current cardioversion on Monday. She has been appropriately/adequately anticoagulated with Eliquis uninterrupted since her most recent hospitalization. Transesophageal echocardiogram performed 12/30/2022 without evidence of left atrial appendage thrombus. Patient underwent successful synchronized electrical cardioversion today with good tolerance We will continue amiodarone for twice daily today with anticipated discharge tomorrow on amiodarone 200 mg twice daily Hold metoprolol for time being likely reinstitute lower dosing Continue chronic anticoagulation with Eliquis Admission and Anticipated Discharge Date Admission Date: February 08, 2023 Subjective Patient seen and examined both prior to and after synchronized electrical cardioversion. Respiratory status improved this morning. Still with elevated ventricular response rate Referred and underwent synchronized electrical cardioversion successfully. Patient tolerated well Denies any chest pains or discomfort. Review of Systems Review of Systems: All systems reviewed & are unremarkable except as noted in Subjective Physical Exam Constitutional: well nourished; no acute distress Eyes: PERRL, conjunctivae normal, anicteric sclerae ENMT: external ear and nose normal, oropharynx normal Neck: trachea midline, no thyromegaly Respiratory: no respiratory distress, no labored breathing and no retractions Auscultation: + diminished lung sounds (Bases bilateral) and + crackles (Bilateral bases with cough); no rales, no rhonchi and no wheezes Cardiovascular: Rate/Rhythm: regular rate and regular rhythm Heart Sounds: normal S1 and normal S2; no murmur Vessels: radial pulses present; no JVD and no carotid bruit Extremities: no edema Gastrointestinal (Abdomen): Inspection/Auscultation: normal bowel sounds; abdomen not distended Percussion/Palpation: abdomen soft; abdomen nontender, no guarding and abdomen not rigid Neurologic: CN's II-XI intact bilaterally and moves all extremities; no focal motor deficits Results & Data Vital Signs (Past 12 Hours) Vital Signs Temp Pulse Resp BP Pulse Ox O2 Del Method 02/13/23 07:45 62 18 117/72 93 Room Air 02/13/23 07:35 62 18 110/81 93 Room Air 02/13/23 07:01 36.6 C 136 H 20 131/98 92 Room Air 02/13/23 03:00 36.6 C 122 H 15 121/84 93 Room Air 02/12/23 23:07 36.6 C 117 H 16 130/84 92 Room Air 02/12/23 20:11 36.7 C 110 H 18 128/72 93 Room Air Laboratory Results Laboratory Results - last 24 hr 02/12/23 14:00 Adenovirus (PCR) Not Detected B. pertussis DNA (PCR) Not Detected B.parapertussis DNA PCR Not Detected C. pneumoniae DNA (PCR) Not Detected Coronavirus OC43 (PCR) Not Detected Coronavirus HKU1 (PCR) Not Detected Coronavirus 229E (PCR) Not Detected SARS-CoV-2 (PCR) Not Detected Coronavirus NL63 (PCR) Not Detected Human Metapneumovir PCR Not Detected Influenza Type A (PCR) Not Detected Influenza Type B (PCR) Not Detected M. pneumoniae (PCR) Not Detected Parainfluenza 1 (PCR) Not Detected Parainfluenza 2 (PCR) Not Detected Parainfluenza 3 (PCR) Not Detected Parainfluenza 4 (PCR) Not Detected RSV (PCR) Not Detected Entero/Rhino (PCR) DETECTED A* ECG Additional Comments: EKG post synchronized electrical cardioversion Normal sinus rhythm at 61 bpm with poor R wave progression precordial leads T wave inversion lateral leads No QT prolongation
[2023-02-13] MEDS: MULTIVITAMIN TAB PO SCH (08:43)
[2023-02-13] MEDS: AMIODARONE 200 MG TAB PO SCH ×2 (08:43→17:12)
[2023-02-13] MEDS: CALCIUM CARBONATE 1250MG TAB PO SCH ×2 (08:43→20:18)
[2023-02-13] MEDS: APIXABAN 5 MG TABLET PO SCH ×2 (08:43→20:18)
[2023-02-13 11:07] LABS: Anion Gap 6 (3-11); BUN Creatinine Ratio 14.2 (10-20); Blood Urea Nitrogen 15 mg/dl (6-23); Calcium 9.3 mg/dl (8.6-10.3); Carbon Dioxide 33 mmol/L (21-32); Chloride 100 mmol/L (98-107); Creatinine Clr Calc Pharmacy 39.3 ml/min; Est GFR (African American) 55.8 ml/min; Est GFR (Non-African American) 48.2 ml/min; Glucose 145 mg/dl (70-99(Fasting)); Sodium 139 mmol/L (136-145)
--- NOTE | 2023-02-13 11:22 | Anesthesiology Progress Note ---
Date of Service February 13, 2023 Anesthesia Post Procedure Vital Signs Vital Signs: Temp Pulse Pulse Resp BP Pulse Ox O2 Del Method 02/13/23 11:16 36.5 C 62 18 110/72 92 Room Air 02/13/23 09:24 Room Air 02/13/23 08:10 36.7 C 63 18 116/76 94 Room Air 02/13/23 07:45 62 18 117/72 93 Room Air 02/13/23 07:35 62 18 110/81 93 Room Air 02/13/23 07:01 36.6 C 136 H 20 131/98 92 Room Air 02/13/23 03:00 36.6 C 122 H 15 121/84 93 Room Air 02/12/23 23:07 36.6 C 117 H 16 130/84 92 Room Air 02/12/23 20:11 36.7 C 110 H 18 128/72 93 Room Air 02/12/23 17:03 36.7 C 121 H 18 120/88 90 Room Air 02/12/23 15:06 104 H 02/12/23 11:55 36.4 C L 118 H 18 116/87 94 Room Air Transfer of Care Handoff Completed per policy Notes Mental Status: alert / awake / arousable Patient Amnestic to Procedure: Yes Nausea / Vomiting: adequately controlled Pain: adequately controlled Airway Patency, RR, SpO2: stable & adequate BP & HR: stable & adequate Hydration State: stable & adequate Anesthetic Complications: no major complications apparent
--- NOTE | 2023-02-13 11:29 | Hospitalist Progress Note ---
Date of Service February 13, 2023 Assessment & Plan (1) Atrial fibrillation with RVR: (2) HFrEF (heart failure with reduced ejection fraction): (3) Dyslipidemia: Plan: per admitting service notes with addendum: This is an 83-year-old female who has a significant past medical history of paroxysmal atrial fibrillation anticoagulated on Eliquis, chronic HFfEF, hx of corneal transplant 10 yrs ago,hyperlipidemia, fecal incontinence and history of breast cancer who presents to ED secondary to MOSQUEDA x 2-3 days. Patient hospitalized 12/26 to 12/31 secondary to A-fib with RVR. Echocardiogram at that time revealed reduced EF with 40 to 45%, moderate global hypokinesis of left ventricle, right ventricle moderately dilated, left atrium moderately dilated, right atrium moderately dilated, aortic valve sclerosis, moderate to severe MR and moderate to severe TR. patient initially treated aggressively with medical management including high-dose metoprolol and digoxin without rate control. She underwent CARISSA guided cardioversion with success. At that time she was found to be in sinus bradycardia likely secondary to aggressive metoprolol use. At this time her metoprolol succinate was reduced back to 12.5 twice daily. On admission she is currently taking 37.5 mg daily. There was discussion at that time about possible tachybradycardia syndrome. Atrial fibrillation with RVR Acute HFrEF -possible tachycardia mediated during most recent hospitalization Admit to PCU Patient currently on IV diltiazem drip will convert to metoprolol tartrate 25 twice daily TSH normal during december hospitalization consult cardiology N.p.o. after midnight in event patient requires additional cardioversion continue eliquis she is euvolemic but will need close monitoring of volume status 02/11 Amiodarone IV --> 400mg PO TID already on Eliquis Lasix IV also given for mild volume overload continue to monitor closely plan for cardioversion on Monday 02/12 CXR ordered Biofire: pending 02/13 s/p successful Cardioversion continue Amiodarone d/c Metoprolol Entero/Rhinovirus Infection stable CXR: no pneumonia continue supportive care HLD continue statin chronic stable Hx of corneal transplant continue pred forte chronic, stable DVT ppx: Eliquis PCP: Monique FULL CODE Dispo: anticipate d/c to home tomorrow when medically stable Admission and Anticipated Discharge Date Admission Date: February 08, 2023 Subjective ff up for a fib RVR etc seen resting in bed, comfortable sitting up s/p cardioversion today states she feels fine overall no chest pain, dyspnea, palpitations, dizziness no sore throat, cough, fever/chills no other new symptoms Review of Systems Review of Systems: all noted and negative except for above Physical Exam Physical Exam: General- oriented x 3, not in distress, speaks in sentences with no effort or accessory muscle use Eyes- anicteric Neck- no JVD Lungs- clear breath sounds bilaterally, no rales/wheezes Heart- normal rate, regular rhythm; no murmurs Abdomen- normal bowel sounds, nondistended, soft, nontender Extremities- no pretibial edema, no calf tenderness Neuro- alert, oriented x 3; no gross focal neurologic deficits Skin- warm & dry Results & Data Results & Data Vital Signs (Past 12 Hours) Vital Signs Temp Pulse Resp BP Pulse Ox O2 Del Method 02/13/23 11:16 36.5 C 62 18 110/72 92 Room Air 02/13/23 09:24 Room Air 02/13/23 08:10 36.7 C 63 18 116/76 94 Room Air 02/13/23 07:45 62 18 117/72 93 Room Air 02/13/23 07:35 62 18 110/81 93 Room Air 02/13/23 07:01 36.6 C 136 H 20 131/98 92 Room Air 02/13/23 03:00 36.6 C 122 H 15 121/84 93 Room Air all noted and reviewed including below
--- NOTE | 2023-02-13 13:14 | Electrocardiogram Report ---
Test Reason : Blood Pressure : / mmHG Vent. Rate : 061 BPM Atrial Rate : 061 BPM P-R Int : 146 ms QRS Dur : 072 ms QT Int : 448 ms P-R-T Axes : 010 007 -70 degrees QTc Int : 450 ms Normal sinus rhythm Septal infarct (cited on or before 13-FEB-2023) Abnormal ECG When compared with ECG of 10-FEB-2023 05:09, Sinus rhythm has replaced Atrial fibrillation Vent. rate has decreased BY 72 BPM Confirmed by Chas Carballo ([id number]) on 02/13/2023 1:13:52 PM Referred By: Serafin Amaya Confirmed By:Chas Carballo
[2023-02-13] MEDS: prednisoLONE acetate 1% OP SUSP 5 ML BTL OP SCH (20:17)
[2023-02-13] MEDS: ROSUVASTATIN CALCIUM 10 MG TAB PO SCH (20:18)
[2023-02-14 05:31] LABS: BUN Creatinine Ratio 18.6 (10-20); Est GFR (African American) 62.2 ml/min; Est GFR (Non-African American) 53.6 ml/min; Potassium 4.1 mmol/L (3.5-5.1)
[2023-02-14] MEDS: AMIODARONE 200 MG TAB PO SCH (09:00)
[2023-02-14] MEDS: APIXABAN 5 MG TABLET PO SCH (09:00)
[2023-02-14] MEDS: CALCIUM CARBONATE 1250MG TAB PO SCH (09:01)
[2023-02-14] MEDS: MULTIVITAMIN TAB PO SCH (09:01)
[2023-02-14] MEDS ORDERED: DOXYCYCLINE HYCLATE 100 MG CAP PO SCH (11:00)
--- NOTE | 2023-02-14 13:39 | Cardiology Progress Note ---
Date of Service February 14, 2023 Assessment & Plan (1) Atrial fibrillation with RVR: (2) HFrEF (heart failure with reduced ejection fraction): Plan 83-year-old female presents with recurrent atrial fibrillation and rapid ventricular response with acute on chronic heart failure. Mild LV systolic dysfunction per most recent echocardiogram. Intravenous amiodarone initiated 02/09/2023 now transitioned to oral amiodarone 400 mg 3 times daily in addition to metoprolol tartrate 25 mg twice daily. Plan elective external direct-current cardioversion on Monday. She has been appropriately/adequately anticoagulated with Eliquis uninterrupted since her most recent hospitalization. Transesophageal echocardiogram performed 12/30/2022 without evidence of left atrial appendage thrombus. Patient underwent successful synchronized electrical cardioversion today with good tolerance We will continue amiodarone for twice daily today with anticipated discharge tomorrow on amiodarone 200 mg twice daily Hold metoprolol for time being likely reinstitute lower dosing Continue chronic anticoagulation with Eliquis 01/14/2023 Stable on current antiarrhythmic therapy without recurrence of atrial fibrillation/flutter We will discharged home on amiodarone 200 mg twice per day x1 week then 200 mg daily Discontinue metoprolol Continue chronic anticoagulation with Eliquis Follow-up cardiology 2 to 4-week Patient to promptly report any new symptoms or tachyarrhythmia Admission and Anticipated Discharge Date Admission Date: February 08, 2023 Subjective Patient seen and examined, chart, telemetry reviewed. Has remained in sinus rhythm since synchronized electrical cardioversion no tachycardia or bradycardia arrhythmias Mild cough and upper respiratory symptoms otherwise no acute complaints positive rhinovirus No fevers or chills Review of Systems Review of Systems: All systems reviewed & are unremarkable except as noted in Subjective Physical Exam Constitutional: well nourished; no acute distress Eyes: PERRL, conjunctivae normal, anicteric sclerae ENMT: external ear and nose normal, oropharynx normal Neck: trachea midline, no thyromegaly Respiratory: no respiratory distress, no labored breathing and no retractions Auscultation: + diminished lung sounds (Bases bilateral) and + crackles (Bilateral bases with cough); no rales, no rhonchi and no wheezes Cardiovascular: Rate/Rhythm: regular rate, regular rhythm, + tachycardic and + irregularly irregular Heart Sounds: normal S1 and normal S2; no murmur Vessels: radial pulses present; no JVD and no carotid bruit Extremities: no edema Gastrointestinal (Abdomen): Inspection/Auscultation: normal bowel sounds; abdomen not distended Percussion/Palpation: abdomen soft; abdomen nontender, no guarding and abdomen not rigid Neurologic: CN's II-XI intact bilaterally and moves all extremities; no focal motor deficits Results & Data Vital Signs (Past 12 Hours) Vital Signs Temp Pulse Resp BP Pulse Ox O2 Del Method 02/14/23 11:31 36.9 C 64 18 116/76 92 Room Air 02/14/23 09:25 Room Air 02/14/23 07:00 36.6 C 60 18 136/80 92 Room Air 02/14/23 03:49 36.4 C L 61 18 123/76 94 Room Air Laboratory Results Laboratory Results - last 24 hr 02/14/23 04:45 Sodium 138 Potassium 4.1 Chloride 104 Carbon Dioxide 29 Anion Gap 5 BUN 18 Creatinine 0.97 Est Cr Clr Drug Dosing 43.0 Est GFR ( Amer) 62.2 Est GFR (Non-Af Amer) 53.6 BUN/Creatinine Ratio 18.6 Glucose 96 Calcium 9.0
[2023-02-14] MEDS ORDERED: AMIODARONE 200 MG TAB PO SCH (17:00)
--- NOTE | 2023-03-08 16:17 | Discharge Summary ---
Discharge Summary Date of Service March 08, 2023 delayed entry date of service February 14, 2023 Notes For Next Care Provider Medication Changes From Visit Amiodarone- for control of atrial fibrillation - to be taken as follows: 200mg twice a day x 1 week, then daily Please stop Metoprolol. Doxycycline- antibiotic for bronchitis Admission HPI Per Admitting Provider This is an 83-year-old female who has a significant past medical history of paroxysmal atrial fibrillation anticoagulated on Eliquis, chronic HFpEF, hx of corneal transplant 10 yrs ago, mild mitral regurgitation, mild tricuspid regurgitation, hyperlipidemia, fecal incontinence and history of breast cancer who presents to ED secondary to MOSQUEDA x 2-3 days. Patient was seen in clinic today by her PCP due to complaints of MOSQUEDA and was noted to be in afib with RVR and therefore was sent to ED. She states over the last 2-3 days she has become very SOB even with little activity. Yesterday she was in the grocery store and had a hard time going around the store. She denies any recent illness, f/c/s, uri sx, chest pain, orthopnea, PND, edema, weight change, n/v/d, abd pain. Her stomach has felt, "queasy," today and overall reduced appetite. She was hospitalized in December with new onset atrial fib and [id number] score of 3. She was placed on oral metoprolol and eliquis. There was concern for possible TBS. She required diltiazem gtt, digoxin and underwent CARISSA guided cardioversion on 12/30. Admission Exam Per Admitting Provider Constitutional: WD/WN, vitals as above, NAD, sitting up in bed, pleasant, conversing easily Head: Normocephalic, Atraumatic Eyes: PERRL, conjunctivae normal, anicteric sclerae ENMT: external ear and nose normal, oropharynx normal Neck: trachea midline, no thyromegaly normal visual inspection Respiratory: normal respiratory effort, lungs clear to auscultation, no wheeze, rales, rhonchi. Normal insp/exp effort, no accessory muscle use Cardiovascular: IRR/IRR, no murmur, trace lower ext edema Vessels: no JVD or carotid bruit Chest: normal inspection of chest Abdomen: normal bowel sounds, soft, nontender, no hepatosplenomegaly Musculoskeletal: no cyanosis or clubbing, extremities motor strength 5/5 Skin: no rashes, warm and dry normal turgor Neurologic: PERRL, EOMI, accommodation nl, no face palsy, no dysarthria CN's II-XI intact bilaterally and moves all extremities Psychiatric: A+Ox3, euthymic affect Lymphatic: no cervical or axillary lymphadenopathy : deferred Principal Dx & Hospital Course #1 = Principal Diagnosis (1) Atrial fibrillation with RVR: (2) HFrEF (heart failure with reduced ejection fraction): (3) Dyslipidemia: per admitting service notes with addendum: This is an 83-year-old female who has a significant past medical history of paroxysmal atrial fibrillation anticoagulated on Eliquis, chronic HFfEF, hx of corneal transplant 10 yrs ago,hyperlipidemia, fecal incontinence and history of breast cancer who presents to ED secondary to MOSQUEDA x 2-3 days. Patient hospitalized 12/26 to 12/31 secondary to A-fib with RVR. Echocardiogram at that time revealed reduced EF with 40 to 45%, moderate global hypokinesis of left ventricle, right ventricle moderately dilated, left atrium moderately dilated, right atrium moderately dilated, aortic valve sclerosis, moderate to severe MR and moderate to severe TR. patient initially treated aggressively with medical management including high-dose metoprolol and digoxin without rate control. She underwent CARISSA guided cardioversion with success. At that time she was found to be in sinus bradycardia likely secondary to aggressive metoprolol use. At this time her metoprolol succinate was reduced back to 12.5 twice daily. On admission she is currently taking 37.5 mg daily. There was discussion at that time about possible tachybradycardia syndrome. Atrial fibrillation with RVR Acute HFrEF -possible tachycardia mediated during most recent hospitalization Admit to PCU Patient currently on IV diltiazem drip will convert to metoprolol tartrate 25 twice daily TSH normal during december hospitalization consult cardiology N.p.o. after midnight in event patient requires additional cardioversion continue eliquis she is euvolemic but will need close monitoring of volume status 02/11 Amiodarone IV --> 400mg PO TID already on Eliquis Lasix IV also given for mild volume overload 02/13 s/p successful Cardioversion continue Amiodarone d/c Metoprolol 02/14 cleared for discharge Amiodarone: 200mg twice a day x 1 week, then daily Stop Metoprolol Doxycycline- antibiotic for bronchitis Entero/Rhinovirus Infection stable CXR: Faint bibasilar airspace opacities which may represent atelectasis, pneumonia, and/or aspiration. Doxycycline course HLD continue statin chronic stable Hx of corneal transplant continue pred forte chronic, stable DVT ppx: Dayanaraquis PCP: Monique FULL CODE Dispo: d/c home Discharge Exam General- oriented x 3, not in distress, speaks in sentences with no effort or accessory muscle use Eyes- anicteric Neck- no JVD Lungs- clear breath sounds bilaterally, no rales/wheezes Heart- normal rate, regular rhythm; no murmurs Abdomen- normal bowel sounds, nondistended, soft, nontender Extremities- no pretibial edema, no calf tenderness Neuro- alert, oriented x 3; no gross focal neurologic deficits Skin- warm & dry Updated Medication List Medication Instructions Recorded Confirmed Type calcium carbonate 500 mg calcium 500 mg PO BID 12/26/22 02/08/23 History (1,250 mg) tablet multivitamin 1 tab PO DAILY 12/26/22 02/08/23 History prednisolone acetate 1 % eye 1 drp OPB HS 12/26/22 02/08/23 History drops,suspension (Pred Forte) apixaban 5 mg tablet (Eliquis) 5 mg PO BID #60 tabs 12/27/22 02/08/23 Rx rosuvastatin 10 mg tablet 10 mg PO HS 02/08/23 02/08/23 History amiodarone 200 mg tablet 200 mg PO UD #74 tabs 02/14/23 Rx doxycycline hyclate 100 mg capsule 100 mg PO Q12H #13 caps 02/14/23 Rx Hospital Stay Data Consultations 02/08/23 19:33 ED Decision to Admit Stat 02/08/23 19:59 Consult Cardiology Routine 02/12/23 10:45 Consult Anesthesiology Routine Procedures Performed Operation Date: 02/13/23 07:15 Actual Procedures p Cardioversion - Jhon Rush MD Pending Results Patient Have Any Pending Studies at Discharge: No Discharge Instructions Given to Patient (Per Discharging Provider) PLEASE REFER TO YOUR NEW MEDICATION LIST AND FOLLOW INSTRUCTIONS CAREFULLY. YOUR NEW MEDICATIONS INCLUDE: Amiodarone- for control of atrial fibrillation - to be taken as follows: 200mg twice a day x 1 week, then daily Please stop Metoprolol. Doxycycline- antibiotic for bronchitis PLEASE CALL YOUR PRIMARY CARE PHYSICIAN OR RETURN TO THE ER IF WITH WORSENING OF SYMPTOMS, INCLUDING chest pain, palpitations, shortness of breath, dizziness, cough, fever/chills, etc FOLLOW UP WITH PRIMARY CARE PHYSICIAN IN 1 WEEK. FOLLOW UP WITH RN PROCEDURES SCHEDULED. Total Time Total Time Spent Total Time Spent (In Minutes): >30 minutes
== END 2023-02-14 15:15 | disposition home or self-care (01) | DRG 308 ==
LOC: ED 16:20 → 4W 19:40 → SUATTDRO 19:40 → 4W 20:28